=== PATIENT | male | born 1975 | race Caucasian/White ===

== ENCOUNTER 2016-05-29 16:51 | Inpatient (IN) ==
[2016-05-29] MEDS ORDERED: 0.9 % Sodium Chloride 1,000 ML IVC ONE (16:59)
[2016-05-29] MEDS ORDERED: Ondansetron 4 MG/2 ML VIAL IVP ONE (16:59)
--- NOTE | 2016-05-29 17:03 | Emergency Department Note ---
Disposition Clinical Impression: Acute pyelonephritis Fever Qualifiers: Fever type: unspecified Qualified Code(s): R50.9 - Fever, unspecified Disposition: Admitted As Inpatient Condition: Good Referrals: Jeovanny Portillo MD [Primary Care Provider] - Forms: ED Satisfaction Letter Time of Disposition: 19:29 Nausea/Vomiting/Diarrhea HPI - General Chief complaint: ED Nausea/Vomiting/Diarrhea Stated complaint: Nausea/Vomiting/fever Time Seen by Provider: 05/29/16 16:55 Source: patient Mode of arrival: ambulatory Limitations: no limitations Nursing Notes Reviewed: Yes Vital Signs Reviewed: Yes - History of Present Illness HPI Narrative: 41-year-old white male who developed right flank pain on Monday. On he developed vomiting and diarrhea. He has had multiple episodes of vomiting. His diarrhea has subsided. He has had fever and chills. He has pain in his right flank at his nephrostomy site. He apparently had a urine culture done which was positive and they were supposed to call in a prescription. That was done last week. Pt Subjective Complaint: vomiting, diarrhea Onset (ago): day(s) (4) Description of emesis: food contents (Multiple) Description of Diarrhea: water (Multiple, has now resolved.) Associated Abdominal Pain: Yes If pain, Location of pain: flank (Right) Radiation: other (None) Severity: severe Quality: sharp Consistency: constant Improves with: movement Worsens with: vomiting Context: other (Nephrostomy) Associated symptoms: Reports: myalgias, fever/chills - Related Data Home Medications Medication Instructions Recorded Confirmed Losartan/Hydrochlorothiazide 1 tab PO BID 05/15/16 05/15/16 [Losartan-Hctz 100-25 mg Tab] Tamsulosin [Flomax] 0.4 mg PO DAILY 05/15/16 05/15/16 Previous Rx's Medication Instructions Recorded Labetalol HCl 200 mg PO BID 30 Days 04/07/16 Promethazine [Phenergan] 12.5 mg PO Q8HR PRN #15 tablet 05/18/16 Allergies Allergy/AdvReac Type Severity Reaction Status Date / Time No Known Allergies Allergy Verified 05/15/16 14:36 All systems ED: reviewed and negative except as stated. Constitutional: Reports: fever, chills ENT ED: Reports: throat pain. Denies: ear pain Cardiovascular: Denies: chest pain Respiratory: Denies: cough, dyspnea Gastrointestinal: Reports: nausea, vomiting, diarrhea Musculoskeletal: Reports: back pain (Right flank) Past Medical History - Past Medical History Medical history: Reports: hypertension, kidney stones Surgical history: Reports: ureteral stent, other Psychiatric history: Reports: anxiety, panic disorder - Social History Smoking Status: Never smoker Smokeless Tobacco Status: No Alcohol use: Reports: none Drug use: Reports: none Physical Exam - General Limitations: no limitations General appearance: alert, in no apparent distress - Head Head exam: atraumatic, normocephalic - Eye Eye exam: Present: PERRL, EOMI. Absent: scleral icterus, conjunctival injection - ENT ENT exam: normal oropharynx, mucous membranes moist, TM's normal bilaterally - Neck Neck exam: Present: normal inspection, full ROM, trachea midline. Absent: lymphadenopathy - Respiratory Respiratory exam: Present: normal lung sounds bilaterally. Absent: respiratory distress, wheezes - Cardiovascular Cardiovascular exam: Present: regular rate, normal rhythm, normal heart sounds - Abdominal Exam Abdominal exam: Present: soft, tenderness (Right flank), normal bowel sounds. Absent: organomegaly, mass - Extremities Exam Extremities exam: Present: normal inspection, normal capillary refill - Neurological Exam Neurological exam: Present: alert, oriented X3, normal gait - Psychiatric Psychiatric exam: Present: normal affect, normal mood - Skin Skin exam: Present: warm, dry Course - Reevaluation(s) Reevaluation #1: Continues to have pain, although it is somewhat improved starting to get worse again. His nausea is improved. His temperature is actually gone up to 105 and he was given Motrin. We discussed admission. He is agreeable with being admitted here. I will talk with Dr. Traylor to see if he will accept admission. Time: 19:02 Reevaluation #2: Accepted by Dr. Traylor. Time: 19:30 Vital Signs Temperature 103.5 F H 05/29/16 16:53 Pulse Rate 111 05/29/16 16:53 Respiratory Rate 19 05/29/16 16:53 Blood Pressure 171/97 05/29/16 16:53 O2 Sat by Pulse Oximetry 96 05/29/16 16:53 Temperature 102.8 F H 05/29/16 19:07 Pulse Rate 103 05/29/16 19:07 Respiratory Rate 18 05/29/16 19:07 Blood Pressure 156/79 05/29/16 19:07 O2 Sat by Pulse Oximetry 95 05/29/16 19:07 Oxygen Delivery Oxygen Delivery Room Air Nausea/Vomiting/Diarrhea - MDM Narrative Medical decision making narrative: Differential includes but is not limited to viral gastroenteritis, pyelonephritis, ureterolithiasis, bowel obstruction, pancreatitis, sepsis. - Medical Records Medical records reviewed: Yes I reviewed the patient's medical records. His culture of his urine from the showed staph aureus which is sensitive to multiple antibiotics including vancomycin. - Lab Data Lab results reviewed: Yes I reviewed the patient's lab results. Result diagrams: 05/29/16 17:10 05/29/16 17:10 Lab Results 05/29/16 05/29/16 05/29/16 Range/Units 17:10 17:10 17:10 WBC 16.9 H (4.3-11.1) K/mcL RBC 3.80 L (4.19-5.50) M/mcL Hgb 11.6 L (12.9-16.9) g/dL Hct 35.1 L (37.5-50.1) % MCV 92.4 (83.0-100.0) fL MCH 30.5 (28.0-33.3) pg MCHC 33.0 (31.6-35.5) g/dL RDW 15.6 H (11.5-14.5) % Plt Count 423 H (140-400) K/mcL MPV 8.8 L (9.4-12.4) fL Immature Gran % 0.5 (0-4) % Seg Neutrophils % 85.7 % Lymphocytes % 5.9 % Monocytes % 7.7 % Eosinophils % 0.0 % Basophils % 0.2 % Neutrophils # 14.5 H (1.6-8.9) K/mcL Lymphocytes # 1.0 (0.6-4.6) K/mcL Monocytes # 1.3 (0.0-1.3) K/mcL Eosinophils # 0.0 (0.0-0.6) K/mcL Basophils # 0.0 (0.0-0.2) K/mcL VBG Lactic Acid 1.2 (0.5-2.2) mmol/L Sodium 137 (136-145) mEq/L Potassium 3.5 (3.5-4.5) mEq/L Chloride 96 L (98-109) mEq/L Carbon Dioxide 25 (19-29) mEq/L BUN 27 H (8-26) mg/dL Creatinine 1.67 H (0.72-1.25) mg/dL Est GFR ( Amer) 55 L (> 60) Est GFR (Non-Af Amer) 45 L (> 60) BUN/Creatinine Ratio 16 (6-26) Glucose 117 H (70-99) mg/dL Calculated Osmolality 290 (280-300) Calcium 10.0 (8.6-10.8) mg/dL Total Bilirubin 0.6 (0.2-1.2) mg/dL AST 37 H (5-34) Units/L ALT 73 H (0-55) Units/L Alkaline Phosphatase 153 H (38-126) Units/L Serum Total Protein 7.7 (6.0-8.3) g/dL Albumin 3.1 L (3.5-5.0) g/dL Globulin 4.6 H (2.4-3.5) g/dL Albumin/Globulin Ratio 0.7 L (1.1-2.2) Lipase 17 (8-78) Units/L Urine Color (Yellow) Urine Clarity (Clear) Urine pH (5.0-8.0) pH Units Ur Specific Rougon (1.010-1.025) Urine Protein (Neg-Trace) mg/dL Urine Glucose (UA) (Normal) mg/dL Urine Ketones (Negative) mg/dL Urine Blood (Negative) Urine Nitrite (Negative) Urine Bilirubin (Negative) Urine Urobilinogen (Normal) mg/dL Ur Leukocyte Esterase (Negative) Urine Microscopic RBC (0-3) per hpf Urine Microscopic WBC (0-3) per hpf Ur Squamous Epith Cells (None-Few) per lpf Urine Bacteria (None-Few) per hpf Hyaline Casts (None-Few) per lpf Urine Mucus (Few) Ur Culture Indicated? (NO) 05/29/16 Range/Units 17:25 WBC (4.3-11.1) K/mcL RBC (4.19-5.50) M/mcL Hgb (12.9-16.9) g/dL Hct (37.5-50.1) % MCV (83.0-100.0) fL MCH (28.0-33.3) pg MCHC (31.6-35.5) g/dL RDW (11.5-14.5) % Plt Count (140-400) K/mcL MPV (9.4-12.4) fL Immature Gran % (0-4) % Seg Neutrophils % % Lymphocytes % % Monocytes % % Eosinophils % % Basophils % % Neutrophils # (1.6-8.9) K/mcL Lymphocytes # (0.6-4.6) K/mcL Monocytes # (0.0-1.3) K/mcL Eosinophils # (0.0-0.6) K/mcL Basophils # (0.0-0.2) K/mcL VBG Lactic Acid (0.5-2.2) mmol/L Sodium (136-145) mEq/L Potassium (3.5-4.5) mEq/L Chloride (98-109) mEq/L Carbon Dioxide (19-29) mEq/L BUN (8-26) mg/dL Creatinine (0.72-1.25) mg/dL Est GFR ( Amer) (> 60) Est GFR (Non-Af Amer) (> 60) BUN/Creatinine Ratio (6-26) Glucose (70-99) mg/dL Calculated Osmolality (280-300) Calcium (8.6-10.8) mg/dL Total Bilirubin (0.2-1.2) mg/dL AST (5-34) Units/L ALT (0-55) Units/L Alkaline Phosphatase (38-126) Units/L Serum Total Protein (6.0-8.3) g/dL Albumin (3.5-5.0) g/dL Globulin (2.4-3.5) g/dL Albumin/Globulin Ratio (1.1-2.2) Lipase (8-78) Units/L Urine Color Yellow (Yellow) Urine Clarity Slightly Cloudy A (Clear) Urine pH 5.5 (5.0-8.0) pH Units Ur Specific Rougon 1.025 (1.010-1.025) Urine Protein >=300 H (Neg-Trace) mg/dL Urine Glucose (UA) Normal (Normal) mg/dL Urine Ketones Negative (Negative) mg/dL Urine Blood Large H (Negative) Urine Nitrite Positive A (Negative) Urine Bilirubin Negative (Negative) Urine Urobilinogen Normal (Normal) mg/dL Ur Leukocyte Esterase Trace H (Negative) Urine Microscopic RBC 5-15 H (0-3) per hpf Urine Microscopic WBC 5-15 H (0-3) per hpf Ur Squamous Epith Cells Few (None-Few) per lpf Urine Bacteria Moderate H (None-Few) per hpf Hyaline Casts Few (None-Few) per lpf Urine Mucus Few (Few) Ur Culture Indicated? YES A (NO) - Radiology Data Radiology results reviewed: Yes I reviewed the patient's radiology results.
[2016-05-29 17:19] LABS: Basophils % 0.2 %; Hematocrit 35.1 % (37.5-50.1); Hemoglobin 11.6 g/dL (12.9-16.9); Immature Granulocytes % 0.5 % (0-4); Lymphocytes % 5.9 %; Mean Corpuscular Hemoglobin 30.5 pg (28.0-33.3); Mean Corpuscular Volume 92.4 fL (83.0-100.0); Mean Platelet Volume 8.8 fL (9.4-12.4); Monocytes # 1.3 K/mcL (0.0-1.3); Monocytes % 7.7 %; Neutrophils # 14.5 K/mcL (1.6-8.9); Platelet Count 423 K/mcL (140-400); Red Cell Distribution Width 15.6 % (11.5-14.5); Segmented Neutrophils % 85.7 %
[2016-05-29] MEDS: *HR* Morphine 2 MG/ML SYRINGE IVP ONE ×2 (17:26→18:18)
[2016-05-29 17:33] LABS: Bilirubin,Urine Negative (Negative); Blood,Urine Large (Negative); Clarity,Urine Slightly Cloudy (Clear); Color,Urine Yellow (Yellow); Glucose,Urine (UA) Normal (Normal); Ketones,Urine Negative (Negative); Leukocyte Esterase,Urine Trace (Negative); Nitrite,Urine Positive (Negative); PH,Urine 5.5 pH Units (5.0-8.0); Protein,Urine >=300 mg/dL (Neg-Trace); Specific Gravity,Urine 1.025 (1.010-1.025); Urobilinogen,Urine Normal (Normal)
[2016-05-29 17:34] LABS: Albumin 3.1 g/dL (3.5-5.0); Albumin/Globulin Ratio 0.7 (1.1-2.2); Bilirubin,Total 0.6 mg/dL (0.2-1.2); Globulin 4.6 g/dL (2.4-3.5); Potassium 3.5 mEq/L (3.5-4.5); Total Protein 7.7 g/dL (6.0-8.3)
[2016-05-29 17:47] LABS: Bacteria,Urine Moderate per hpf (None-Few); Hyaline Casts,Urine Few per lpf (None-Few); Mucus,Urine Few (Few); Squamous Epithelial Cell,Urine Few per lpf (None-Few)
[2016-05-29] MEDS ORDERED: *HR* Morphine 2 MG/ML SYRINGE IVP ONE (18:05)
[2016-05-29] MEDS ORDERED: Ibuprofen 600 MG TABLET PO ONE (18:24)
[2016-05-29] MEDS ORDERED: 0.9 % Sodium Chloride 1,000 ML IVC SCH ×2 (18:45→20:44)
[2016-05-29] MEDS ORDERED: Vancomycin 1,250 MG in D5% in Water 250 ML IVPB ONE (19:01)
[2016-05-29] MEDS ORDERED: *HR* HYDROmorphone (PF) 1 MG/ML SYRINGE IVP ONE (19:17)
[2016-05-29] MEDS ORDERED: Vancomycin 1,000 MG in D5% in Water 250 ML IVPB ONE (19:17)
[2016-05-29] MEDS ORDERED: Vancomycin (wt based) 1,000 MG VIAL IV SCH (20:44)
[2016-05-29] MEDS ORDERED: Naloxone 0.4 MG/ML INJ IVP PRN (20:44)
[2016-05-29] MEDS ORDERED: *HR* HYDROmorphone (PF) 1 MG/ML SYRINGE IVP PRN (20:44)
[2016-05-29] MEDS: Ondansetron 4 MG/2 ML VIAL IVP PRN (21:51)
[2016-05-29] MEDS: *HR* HYDROmorphone (PF) 1 MG/ML SYRINGE IVP PRN (21:55)
[2016-05-29] MEDS: 0.9 % Sodium Chloride 1,000 ML IVC SCH (23:58)
[2016-05-30] MEDS: Acetaminophen 325 MG TABLET PO PRN ×2 (01:27→19:44)
[2016-05-30] MEDS: *HR* HYDROmorphone (PF) 1 MG/ML SYRINGE IVP PRN ×12 (02:15→23:43)
[2016-05-30] MEDS: Ondansetron 4 MG/2 ML VIAL IVP PRN ×6 (02:20→23:43)
[2016-05-30] MEDS ORDERED: Azithromycin 500 MG in D5% in Water 250 ML IVPB ONE (02:25)
[2016-05-30] MEDS: CefTRIAXone 1,000 MG in D5% in Water (Mini-Bag+) 100 ML IVPB SCH (03:51)
[2016-05-30] MEDS: *HR* Enoxaparin 40 MG/0.4 ML SYRINGE SQ SCH (06:22)
[2016-05-30] MEDS: 0.9 % Sodium Chloride 1,000 ML IVC SCH (07:13)
[2016-05-30] MEDS: Vancomycin 1,250 MG in D5% in Water 250 ML IVPB SCH ×2 (10:26→19:45)
--- NOTE | 2016-05-30 11:24 | Internal Med History&Physical ---
Date of Encounter: 05/30/16 Time of Encounter: 10:45 Assessment and Plan (1) Acute pyelonephritis Current visit: Yes Status: Acute He has been started on vancomycin. Rocephin and Levaquin were added during the night after temperature spike to 105. Lactobacillus will also be given. Urine culture is pending (2) HTN (hypertension) Current visit: No Status: Chronic Continue labetalol and monitor blood pressures. Qualifiers: Qualified Code(s): I10 - Essential (primary) hypertension (3) Dehydration Current visit: No Status: Resolved We will give IV fluids and monitor renal indices. Internal Medicine - H&P: HPI Chief complaint: Vomiting and fever Admitted From: Home Plans for Post Hospital Care: Home History of present illness: Mr. Haines is a 41 year old male who came to emergency room stating he had 4 days of vomiting with fever. He was found to have leukocytosis with left shift on the differential. He was diagnosed with pyelonephritis and was admitted to [facility] floor for ongoing care needs. He had a right nephrostomy tube placed 2 weeks ago during an [facility] stay. He had a previous distal right ureter stent placed 03/22/2016 because of stricture (?) . There was a questionable stone or stricture at the right UVJ. Stent was removed after 3-4 weeks. He has continued to have right sided symptoms. Urine culture done 05/24/2016 showed MSSA. He was started on vancomycin in emergency room on admission. Denies other kidney or bladder disorders. He is unaware of any prostate disorders. Past Med Surg Social Fam HX - Past Medical History Medical history: hypertension, kidney stones Psychiatric history: anxiety, panic disorder - Past Surgical History Surgical History: ureteral stent, other - Social History Smoking Status: Never smoker Smokeless Tobacco Status: No Alcohol use: none Drug use: none - Family History Father Living Status: Still Living Hx Family Cardiac Disorders: Yes (Hx heart disease) Hx Family Cancer: Yes Hx Family Endocrine Disorder: Yes (Diabetes) Mother Adopted: No Living Status: Still Living Hx Family Cardiac Disorders: Yes (Heart attacks) Hx Family Cancer: Yes (moms brothers had pancreatic cancer) Hx Family Endocrine Disorder: Yes Internal Medicine - H&P: Meds Labetalol HCl 200 mg PO BID 30 Days 04/07/16 [Rx] Losartan/Hydrochlorothiazide [Losartan-Hctz 100-25 mg Tab] 1 tab PO BID [History] Tamsulosin [Flomax] 0.4 mg PO DAILY 05/15/16 [History] Promethazine [Phenergan] 12.5 mg PO Q8HR PRN #15 tablet 05/18/16 [Rx] Allergies No Known Allergies Allergy (Verified 05/15/16 14:36) All Systems PM: A 10-system review of systems was performed and is negative for pertinent findings except as documented above in the HPI. Review of systems: Review of systems from his January 2016 [facility] hospitalization were reviewed and revised as below. General: He states his weight has been stable the past few months Cardiovascular: Has hypertension but no known IN heart failure angina DVT or pulmonary embolus. He claims he had exercise stress test at [facility] in August 2015 which did not show ischemia. He has not restarted Hyzaar since hospitalization January 2016 at [facility] for hypotension. He has resumed labetalol. Respiratory: He is a lifelong nonsmoker and has no known chronic lung disease GI: Denies disorders of his liver gallbladder or exocrine pancreas : As per history of present illness Neurologic: He denies large distribution strokes or seizures Endocrine: He denies diabetes thyroid disease or hyperlipidemia Hematology/oncology: He was found to have anemia in the emergency room. He denies internal malignancies Psychiatric: He has anxiety and depression denies other mental health issues Musk skeletal: He has DJD but denies gout or other bone joint or muscle disorders. - Constitutional Vitals: Temp Pulse Resp BP Pulse Ox 98.9 F 95 20 150/95 95 05/30/16 11:05 05/30/16 11:05 05/30/16 11:05 05/30/16 11:05 05/30/16 11:05 Exam: Gen.: He is a well-developed well-nourished male who appears in mild to moderate pain at times during examination. HEENT: Head is atraumatic and normocephalic. Eyes: EOMI. There is no scleral icterus. Mouth: Mucosa is moist. Neck: Supple and nontender. There is no thyromegaly or adenopathy noted. Heart: Regular without murmurs gallops or ectopics. Lungs: No wheezes or crackles heard. Abdomen: Bowel sounds are diminished. There is no tenderness or masses noted Back: He has a right nephrostomy tube in place. There is mild erythema at the insertion site and suture. Extremities: There is no cyanosis edema or clubbing noted. Dorsalis pedis and posttibial pulses are 1-2 over 2 bilaterally. Neurologic: Mental status: He is talkative and a good historian. Cranial nerves : Smile is symmetric. Forehead wrinkles bilaterally. Tongue protrudes midline. EOMI. Motor: Grossly intact without further formal testing done. Skin: Warm and dry Internal Med - H&P Results - Labs CBC & Chem 7: 05/29/16 17:10 05/29/16 17:10
[2016-05-30] MEDS: 0.45 % Sodium Chloride w/KCl 20 MEQ/1,000 ML MLS IVC SCH (12:49)
[2016-05-30] MEDS: Levofloxacin 500 MG/100 ML 500 MG/100 ML BAG IVPB SCH (12:50)
[2016-05-31] MEDS: *HR* HYDROmorphone (PF) 1 MG/ML SYRINGE IVP PRN ×11 (01:46→22:31)
[2016-05-31] MEDS: Acetaminophen 325 MG TABLET PO PRN (01:46)
[2016-05-31] MEDS: 0.45 % Sodium Chloride w/KCl 20 MEQ/1,000 ML MLS IVC SCH ×2 (01:52→15:23)
[2016-05-31] MEDS: CefTRIAXone 1,000 MG in D5% in Water (Mini-Bag+) 100 ML IVPB SCH (01:54)
[2016-05-31] MEDS: Ondansetron 4 MG/2 ML VIAL IVP PRN ×3 (03:46→20:31)
[2016-05-31 05:31] LABS: Basophils % 0.5 %; Eosinophils # 0.1 K/mcL (0.0-0.6); Eosinophils % 1.2 %; Hematocrit 30.2 % (37.5-50.1); Hemoglobin 9.9 g/dL (12.9-16.9); Immature Granulocytes % 0.4 % (0-4); Lymphocytes # 2.1 K/mcL (0.6-4.6); Mean Corpuscular HGB Conc 32.8 g/dL (31.6-35.5); Mean Corpuscular Hemoglobin 30.7 pg (28.0-33.3); Mean Corpuscular Volume 93.8 fL (83.0-100.0); Mean Platelet Volume 8.8 fL (9.4-12.4); Monocytes # 0.7 K/mcL (0.0-1.3); Monocytes % 9.3 %; Neutrophils # 4.7 K/mcL (1.6-8.9); Platelet Count 430 K/mcL (140-400); Red Blood Count 3.22 M/mcL (4.19-5.50); Red Cell Distribution Width 15.7 % (11.5-14.5); Segmented Neutrophils % 61.6 %
[2016-05-31] MEDS: *HR* Enoxaparin 40 MG/0.4 ML SYRINGE SQ SCH (05:44)
[2016-05-31 05:48] LABS: BUN/Creatinine Ratio 13 (6-26); Blood Urea Nitrogen 11 mg/dL (8-26); Calcium 9.1 mg/dL (8.6-10.8); Carbon Dioxide 29 mEq/L (19-29); Chloride 99 mEq/L (98-109); Glucose 99 mg/dL (70-99); Magnesium 1.9 mg/dL (1.6-2.6); Osmolality,Calculated 285 (280-300); Potassium 3.6 mEq/L (3.5-4.5); Sodium 138 mEq/L (136-145); eGFR For African Americans > 60 (> 60); eGFR For Non-African Americans > 60 (> 60)
[2016-05-31] MEDS: Vancomycin 1,250 MG in D5% in Water 250 ML IVPB SCH (09:54)
[2016-05-31] MEDS: Vancomycin 1,500 MG in D5% in Water 250 ML IVPB SCH ×2 (10:26→20:31)
--- NOTE | 2016-05-31 10:28 | Internal Med Progress Note ---
Date of Encounter: 05/31/16 Time of Encounter: 10:20 - Assessment and plan (1) Acute pyelonephritis Current Visit: Yes Status: Acute Assessment and plan: May 31. Continue Rocephin, Levaquin, and vancomycin. Urine culture report is pending. (2) HTN (hypertension) Current Visit: No Status: Chronic Assessment and plan: May 31. Continue to hold Hyzaar. Will start Toprol-XL.. Qualifiers: Hypertension type: essential hypertension Qualified Code(s): I10 - Essential (primary) hypertension (3) Dehydration Current Visit: No Status: Resolved Assessment and plan: May 31. Azotemia has resolved. Oral intake is still suboptimal so we will continue with IV fluids. - Subjective Interval history: May 31. He states he is having pain at the nephrostomy tube area but has no other new complaints. - Constitutional Vitals: Temp Pulse Resp BP Pulse Ox 98.8 F 88 17 159/94 97 05/31/16 10:00 05/31/16 10:00 05/31/16 10:00 05/31/16 10:00 05/31/16 10:00 Exam: He appears to be in minimal distress at present time. His affect is cheerful at times. I reviewed his medications and lab results and note normal WBC and resolution of left shift. He has had resolution of his azotemia. Internal Medicine: Result - Labs CBC & Chem 7: 05/31/16 05:05 05/31/16 05:05 Labs: Short CBC 05/31/16 Range/Units 05:05 WBC 7.7 D (4.3-11.1) K/mcL Hgb 9.9 L D (12.9-16.9) g/dL Hct 30.2 L (37.5-50.1) % Plt Count 430 H (140-400) K/mcL Neutrophils # 4.7 (1.6-8.9) K/mcL BMP 05/31/16 05:05 Sodium 138 Potassium 3.6 Chloride 99 Carbon Dioxide 29 BUN 11 D Creatinine 0.84 Glucose 99 Calcium 9.1 Consult Discharge Plan - Plan Referrals: Jeovanny Portillo MD [Primary Care Provider] - 1 week
[2016-05-31] MEDS: Levofloxacin 500 MG/100 ML 500 MG/100 ML BAG IVPB SCH (12:00)
[2016-05-31] MEDS: Metoprolol XL (24 HR) Succ 25 MG TAB.ER.24H PO SCH (12:01)
[2016-06-01] MEDS: *HR* HYDROmorphone (PF) 1 MG/ML SYRINGE IVP PRN ×5 (00:29→08:36)
[2016-06-01] MEDS: CefTRIAXone 1,000 MG in D5% in Water (Mini-Bag+) 100 ML IVPB SCH (02:28)
[2016-06-01] MEDS: *HR* Enoxaparin 40 MG/0.4 ML SYRINGE SQ SCH (04:36)
[2016-06-01] MEDS: 0.45 % Sodium Chloride w/KCl 20 MEQ/1,000 ML MLS IVC SCH (04:43)
[2016-06-01 05:20] LABS: Basophils % 0.5 %; Eosinophils # 0.1 K/mcL (0.0-0.6); Eosinophils % 1.8 %; Hematocrit 29.7 % (37.5-50.1); Hemoglobin 9.9 g/dL (12.9-16.9); Immature Granulocytes % 0.6 % (0-4); Lymphocytes # 1.9 K/mcL (0.6-4.6); Lymphocytes % 27.9 %; Mean Corpuscular HGB Conc 33.3 g/dL (31.6-35.5); Mean Corpuscular Hemoglobin 30.7 pg (28.0-33.3); Mean Platelet Volume 8.9 fL (9.4-12.4); Monocytes # 0.5 K/mcL (0.0-1.3); Monocytes % 6.9 %; Neutrophils # 4.1 K/mcL (1.6-8.9); Platelet Count 509 K/mcL (140-400); Red Blood Count 3.23 M/mcL (4.19-5.50); Red Cell Distribution Width 15.2 % (11.5-14.5); Segmented Neutrophils % 62.3 %
[2016-06-01 05:46] LABS: Alanine Aminotransferase 35 Units/L (0-55); Albumin 2.5 g/dL (3.5-5.0); Albumin/Globulin Ratio 0.7 (1.1-2.2); Alkaline Phosphatase 131 Units/L (38-126); Aspartate Amino Transferase 20 Units/L (5-34); BUN/Creatinine Ratio 13 (6-26); Bilirubin,Total 0.3 mg/dL (0.2-1.2); Blood Urea Nitrogen 10 mg/dL (8-26); Calcium 9.2 mg/dL (8.6-10.8); Carbon Dioxide 26 mEq/L (19-29); Chloride 100 mEq/L (98-109); Globulin 3.6 g/dL (2.4-3.5); Glucose 98 mg/dL (70-99); Osmolality,Calculated 287 (280-300); Potassium 3.6 mEq/L (3.5-4.5); Sodium 139 mEq/L (136-145); Total Protein 6.1 g/dL (6.0-8.3); eGFR For African Americans > 60 (> 60); eGFR For Non-African Americans > 60 (> 60)
[2016-06-01 08:35] VITALS: BP 165/100
[2016-06-01] MEDS: Ondansetron 4 MG/2 ML VIAL IVP PRN (08:35)
[2016-06-01] MEDS: Metoprolol XL (24 HR) Succ 25 MG TAB.ER.24H PO SCH (08:55)
--- NOTE | 2016-06-01 09:41 | Discharge Summary ---
Date of Encounter: 06/01/16 Time of Encounter: 09:30 - Discharge Diagnosis (1) Acute pyelonephritis Priority: Primary Status: Acute (2) HTN (hypertension) Priority: Secondary Status: Chronic Qualifiers: Hypertension type: essential hypertension Qualified Code(s): I10 - Essential (primary) hypertension (3) Dehydration Priority: Secondary Status: Resolved - Discharge Medications Prescriptions: Cefuroxime PO [Ceftin] 500 mg PO Q12HR #14 tablet Lactobacillus [Culturelle] 1 each PO BID #14 cap.sprink Levofloxacin [Levaquin] 500 mg PO DAILY #7 tablet Metoprolol XL (24 HR) Succ [Toprol XL] 50 mg PO DAILY #7 tab.er.24h Home Medications: Tamsulosin [Flomax] 0.4 mg PO DAILY 05/15/16 [History] Promethazine [Phenergan] 12.5 mg PO Q8HR PRN #15 tablet 05/18/16 [Rx] Cefuroxime PO [Ceftin] 500 mg PO Q12HR #14 tablet 06/01/16 [Rx] Lactobacillus [Culturelle] 1 each PO BID #14 cap.sprink 06/01/16 [Rx] Levofloxacin [Levaquin] 500 mg PO DAILY #7 tablet 06/01/16 [Rx] Metoprolol XL (24 HR) Succ [Toprol XL] 50 mg PO DAILY #7 tab.er.24h 06/01/16 [Rx ] Allergies/Adverse Reactions: Allergies No Known Allergies Allergy (Verified 05/15/16 14:36) Date of admission: 05/30/16 11:38 Primary care physician: Jeovanny Portillo MD - Patient Status Disposition: Home, Self-Care Condition: Good Overall status at discharge: patient is progressing back to baseline - Discharge Instructions Follow Up With: Jeovanny Portillo MD [Primary Care Provider] - 1 week - Diet and Activity Activity: resume usual activities as tolerated Diet: advance to your usual diet Hospital course: Mr. Haines is a 41 year old male who came to emergency room stating he had 4 days of vomiting with fever. He was found to have leukocytosis with left shift on the differential. He was diagnosed with pyelonephritis and was admitted to [facility] floor for ongoing care needs. Initial orders were written by the emergency room physician. I saw him on May 30 and performed a history and physical. He was started on IV vancomycin by the emergency room physician. I added Rocephin and Levaquin empirically. Urine culture was ordered but no results were available at time of discharge. He remained afebrile after the first hospital day. Leukocytosis resolved and left shift on the WBC differential normalized. On June 01 he felt significantly improved and felt was stable for discharge home to continue oral antibiotics and probiotics for an additional 7 days. He will follow with Dr. Jeovanny Portillo later today and follow with urologist as directed. He was given IV fluids and labetalol and Hyzaar were held. His azotemia resolved with BUN and creatinine being 10 and 0.75 respectively on the day of discharge. He was started on Toprol-XL to replace labetalol. He will continue this upon discharge. Hemoglobin decreased to 9.9 with IV hydration. No anemia testing was done during his hospital stay. Elevated transaminases returned to normal range on repeat CMP 06/01/2016. - Time Spent with Patient Total time spent providing and/or coordinating discharge services: - Constitutional Vitals: Temp Pulse Resp BP Pulse Ox 98.5 F 84 16 165/100 96 06/01/16 07:08 06/01/16 08:34 06/01/16 07:08 06/01/16 08:34 06/01/16 08:34
== END 2016-06-01 11:10 | disposition home or self-care (01) | DRG 463 ==
LOC: INPPIK 16:51 → EMEROOPIK 16:51 → INPPIK 20:35
PROVIDERS: ADMIT Internal Medicine; ATTEND Internal Medicine

== ENCOUNTER 2017-10-30 18:55 | Inpatient (IN) ==
[2017-10-30] MEDS ORDERED: 0.9 % Sodium Chloride 1,000 ML IVC ONE ×2 (19:30→20:53)
[2017-10-30] MEDS ORDERED: Ondansetron 4 MG/2 ML VIAL IVP ONE (19:30)
[2017-10-30] MEDS ORDERED: *HR* Nalbuphine 10 MG/ML AMPUL IV STA (19:36)
--- NOTE | 2017-10-30 19:38 | Emergency Department Note ---
Disposition Clinical Impression: Acute renal failure Qualifiers: Acute renal failure type: unspecified Qualified Code(s): N17.9 - Acute kidney failure, unspecified Abdominal pain Qualifiers: Abdominal location: generalized Qualified Code(s): R10.84 - Generalized abdominal pain Nausea and vomiting Qualifiers: Vomiting type: unspecified Vomiting Intractability: unspecified Qualified Code( s): R11.2 - Nausea with vomiting, unspecified Disposition: Admitted As Inpatient Referrals: Fernando Del Valle, CERTIFIED RECREATIONAL THERAPIST [Primary Care Provider] - Forms: ED Satisfaction Letter, Work/School Release Time of Disposition: 21:46 (Dr Pacheco) Abdominal Pain HPI - General Chief Complaint: ED General Medical Stated Complaint: "my kidneys, failure" Time Seen by Provider: 10/30/17 19:06 Source: family Mode of arrival: ambulatory Limitations: no limitations Nursing Notes Reviewed: Yes Vital Signs Reviewed: Yes - History of Present Illness Pt Subjective Complaint: abdominal pain Onset (ago): day(s) (4) Consistency: constant, Worsening Location: RUQ, RLQ Pain Scale: 7 Migration to: no migration Improves with: nothing Worsens with: vomiting, movement Context: other (Patient has a history of chronic abdominal pain and flank pain secondary to complications of urologic surgery. The patient has this episode every couple of weeks and was recently seen at [facility] where he had negative diagnostic and laboratory evaluation. The patient had persistent pain since Monday and unable tolerate by mouth. The patient states this is similar to previous history of renal pain leading to subsequent renal failure and dehydration.) Associated symptoms: Reports: nausea, vomiting, chills. Denies: diarrhea, fever , constipation, dysuria, hematemesis, hematochezia, melena, hematuria, anorexia , syncope Treatments prior to arrival: none - Related Data Home Medications Medication Instructions Recorded Confirmed Tamsulosin [Flomax] 0.4 mg PO DAILY 08/26/16 10/30/17 Oxybutynin [Ditropan] 0.5 mg PO QID 10/08/16 10/30/17 Labetalol HCl 200 mg PO BID 09/14/17 10/30/17 Allergies Allergy/AdvReac Type Severity Reaction Status Date / Time ketorolac [From Toradol] Allergy Rash Verified 09/14/17 16:22 All systems ED: reviewed and negative except as stated. Review of Systems: As Per HPI Abdominal Pain PMH - Past Medical History Medical history: Reports: arthritis, hypertension, kidney stones, renal disease , other Male Surgical History: Reports: orthopedic, other, other Psychiatric history: Reports: anxiety, panic disorder - Social History Smoking status: Never smoker Alcohol use: Reports: none Drug use: Reports: none Physical Exam - General Limitations: no limitations General appearance: alert, in distress - Head Head exam: atraumatic, normocephalic, normal inspection - Eye Eye exam: Present: normal appearance, PERRL, EOMI - ENT ENT exam: normal exam, normal oropharynx, mucous membranes moist - Neck Neck exam: Present: normal inspection, full ROM, trachea midline - Chest Chest inspection: Present: normal inspection, symmetric chest wall rise - Respiratory Respiratory exam: Present: normal lung sounds bilaterally - Cardiovascular Cardiovascular exam: Present: regular rate, normal rhythm, normal heart sounds - Abdominal Exam Abdominal exam: Present: soft, tenderness. Absent: distention, guarding, rebound, rigidity Abdominal tenderness: Present: RUQ, RLQ, suprapubic - Extremities Exam Extremities exam: Present: normal inspection, full ROM. Absent: tenderness, pedal edema - Back Exam Back exam: Present: normal inspection, full ROM, CVA tenderness (R) - Neurological Exam Neurological exam: Present: alert, oriented X3, CN II-XII intact - Psychiatric Psychiatric exam: Present: normal affect, normal mood - Skin Skin exam: Present: warm, dry, intact, normal color Course - Reevaluation(s) Reevaluation #1: Stable hemodynamically but still persistent nausea and abdominal pain. Laboratory evaluation shows elevated creatinine levels. Patient still unable to produce a urine sample. Time: 21:00 Vital Signs Temperature 98.6 F 10/30/17 18:59 Pulse Rate 71 10/30/17 18:59 Respiratory Rate 16 10/30/17 18:59 Blood Pressure 74/48 10/30/17 18:59 O2 Sat by Pulse Oximetry 98 10/30/17 18:59 Temperature 98.6 F 10/30/17 18:59 Pulse Rate 73 10/30/17 21:21 Respiratory Rate 16 10/30/17 21:21 Blood Pressure 101/71 10/30/17 21:21 O2 Sat by Pulse Oximetry 95 10/30/17 21:21 Oxygen Delivery Oxygen Delivery Room Air Abdominal Pain - MDM Narrative Medical decision making narrative: Patient with persistent nausea with abdominal pain of undetermined etiology. Patient's laboratory and diagnostic results from 11-13 ED visit was acquired and indicates that he has worsening renal function. The patient will be admitted to the hospital for hydration and monitoring of his kidney function. Discussed the case with the admitting hospitalist and will accept. - Differential Diagnosis Differential Diagnosis: Likely: abdominal pain non-specific, calculus of kidney - Medical Records Medical records reviewed: Yes I reviewed the patient's medical records. - Lab Data Lab results reviewed: Yes I reviewed the patient's lab results. Result diagrams: 10/30/17 20:00 10/30/17 20:00 Lab Results 10/30/17 10/30/17 Range/Units 20:00 20:00 WBC 11.6 H (4.3-11.1) K/mcL RBC 4.36 (4.19-5.50) M/mcL Hgb 14.2 (12.9-16.9) g/dL Hct 42.2 (37.5-50.1) % MCV 96.8 (83.0-100.0) fL MCH 32.6 (28.0-33.3) pg MCHC 33.6 (31.6-35.5) g/dL RDW 13.3 (11.5-14.5) % Plt Count 389 (140-400) K/mcL MPV 9.2 L (9.4-12.4) fL Immature Gran % 0.5 (0-4) % Seg Neutrophils % 88.4 % Lymphocytes % 6.4 % Monocytes % 4.4 % Eosinophils % 0.0 % Basophils % 0.3 % Neutrophils # 10.3 H (1.6-8.9) K/mcL Lymphocytes # 0.7 (0.6-4.6) K/mcL Monocytes # 0.5 (0.0-1.3) K/mcL Eosinophils # 0.0 (0.0-0.6) K/mcL Basophils # 0.0 (0.0-0.2) K/mcL Sodium 139 (136-145) mEq/L Potassium 3.6 (3.5-5.1) mEq/L Chloride 100 (98-107) mEq/L Carbon Dioxide 25 (23-29) mEq/L BUN 25 H (6-20) mg/dL Creatinine 1.86 H (0.70-1.30) mg/dL Est GFR ( Amer) 48 L (> 60) Est GFR (Non-Af Amer) 40 L (> 60) BUN/Creatinine Ratio 13 (6-26) Glucose 146 H (70-105) mg/dL Calculated Osmolality 295 (280-300) Calcium 10.2 (8.6-10.3) mg/dL Total Bilirubin 0.9 (0.3-1.0) mg/dL Direct Bilirubin 0.1 (0.0-0.2) mg/dL Indirect Bilirubin 0.8 (0.0-1.2) mg/dL AST 15 (13-39) Units/L ALT 15 (7-52) Units/L Alkaline Phosphatase 52 (34-104) Units/L Serum Total Protein 7.8 (6.4-8.9) g/dL Albumin 4.9 (3.5-5.7) g/dL Globulin 2.9 (2.4-3.5) g/dL Albumin/Globulin Ratio 1.7 (1.1-2.2) Lipase 40 (11-82) Units/L
[2017-10-30 20:11] LABS: Basophils % 0.3 %; Hematocrit 42.2 % (37.5-50.1); Hemoglobin 14.2 g/dL (12.9-16.9); Immature Granulocytes % 0.5 % (0-4); Lymphocytes # 0.7 K/mcL (0.6-4.6); Lymphocytes % 6.4 %; Mean Corpuscular HGB Conc 33.6 g/dL (31.6-35.5); Mean Corpuscular Hemoglobin 32.6 pg (28.0-33.3); Mean Corpuscular Volume 96.8 fL (83.0-100.0); Mean Platelet Volume 9.2 fL (9.4-12.4); Monocytes # 0.5 K/mcL (0.0-1.3); Monocytes % 4.4 %; Neutrophils # 10.3 K/mcL (1.6-8.9); Platelet Count 389 K/mcL (140-400); Red Blood Count 4.36 M/mcL (4.19-5.50); Red Cell Distribution Width 13.3 % (11.5-14.5); Segmented Neutrophils % 88.4 %
[2017-10-30 20:27] LABS: Albumin 4.9 g/dL (3.5-5.7); Albumin/Globulin Ratio 1.7 (1.1-2.2); Bilirubin,Direct 0.1 mg/dL (0.0-0.2); Bilirubin,Indirect 0.8 mg/dL (0.0-1.2); Bilirubin,Total 0.9 mg/dL (0.3-1.0); Calcium 10.2 mg/dL (8.6-10.3); Globulin 2.9 g/dL (2.4-3.5); Potassium 3.6 mEq/L (3.5-5.1); Total Protein 7.8 g/dL (6.4-8.9)
[2017-10-30] MEDS ORDERED: *HR* Nalbuphine 10 MG/ML AMPUL IVP STA (21:00)
[2017-10-30] MEDS: Haloperidol Lactate 5 MG/ML VIAL IVP ONE (21:11)
[2017-10-30] MEDS ORDERED: Ondansetron 4 MG/2 ML VIAL IVP PRN ×2 (21:47→22:15)
[2017-10-30] MEDS ORDERED: *HR* HYDROcodone/Acet 5/325 mg TABLET PO PRN ×2 (21:47→22:15)
[2017-10-30] MEDS ORDERED: Naloxone 0.4 MG/ML INJ IVP PRN ×2 (21:47→22:15)
[2017-10-30] MEDS ORDERED: *HR* Nalbuphine 20 MG/ML AMPUL IVP PRN (21:49)
[2017-10-30] MEDS ORDERED: Haloperidol Lactate 5 MG/ML VIAL IVP PRN ×2 (21:50→22:15)
[2017-10-30] MEDS ORDERED: 0.9 % Sodium Chloride 1,000 ML IVC SCH (22:00)
[2017-10-30] MEDS: 0.9 % Sodium Chloride 1,000 ML IVC SCH (23:03)
[2017-10-31 02:51] LABS: Bilirubin,Urine Small (Negative); Blood,Urine Trace-intact (Negative); Clarity,Urine Cloudy (Clear); Color,Urine Dark Yellow (Yellow); Glucose,Urine (UA) 100 mg/dL (Normal); Ketones,Urine Negative (Negative); Leukocyte Esterase,Urine Negative (Negative); Nitrite,Urine Negative (Negative); PH,Urine 6.5 pH Units (5.0-8.0); Protein,Urine >=300 mg/dL (Neg-Trace); Specific Gravity,Urine >= 1.030 (1.010-1.025); Urobilinogen,Urine Normal (Normal)
[2017-10-31 04:23] LABS: Basophils % 0.3 %; Hematocrit 35.2 % (37.5-50.1); Hemoglobin 11.6 g/dL (12.9-16.9); Immature Granulocytes % 0.2 % (0-4); Lymphocytes # 1.5 K/mcL (0.6-4.6); Lymphocytes % 16.7 %; Mean Corpuscular Hemoglobin 32.1 pg (28.0-33.3); Mean Corpuscular Volume 97.5 fL (83.0-100.0); Mean Platelet Volume 9.1 fL (9.4-12.4); Monocytes # 0.8 K/mcL (0.0-1.3); Monocytes % 8.6 %; Neutrophils # 6.8 K/mcL (1.6-8.9); Platelet Count 313 K/mcL (140-400); Red Blood Count 3.61 M/mcL (4.19-5.50); Red Cell Distribution Width 13.4 % (11.5-14.5); Segmented Neutrophils % 74.2 %
[2017-10-31 04:44] LABS: Calcium 8.9 mg/dL (8.6-10.3); Magnesium 1.8 mg/dL (1.6-2.6); Potassium 3.6 mEq/L (3.5-5.1)
[2017-10-31] MEDS: 0.9 % Sodium Chloride 1,000 ML IVC SCH (06:03)
[2017-10-31 09:18] LABS: Granular Casts,Urine Moderate per lpf (None Seen)
[2017-10-31 09:19] LABS: Hyaline Casts,Urine Few per lpf (None-Few)
[2017-10-31 09:21] LABS: White Blood Cell Casts,Urine Moderate per lpf (None Seen)
[2017-10-31 09:22] LABS: Amorphous Sediment,Urine Few (Few); Bacteria,Urine Moderate per hpf (None-Few); Mucus,Urine Few (Few); RBC,Urine 0-3 per hpf (0-3); Squamous Epithelial Cell,Urine Few per lpf (None-Few)
[2017-10-31] MEDS: *HR* Nalbuphine 10 MG/ML AMPUL IVP PRN ×3 (09:22→23:10)
--- NOTE | 2017-10-31 11:40 | Internal Med History&Physical ---
Date of Encounter: 10/31/17 Time of Encounter: 11:00 Assessment and Plan (1) Acute renal failure (ARF) Current visit: No Status: Resolved Suspect multifactorial etiology including dehydration from vomiting and diuretic use. He will be given IV fluids and diuretics will be held. Renal indices will be monitored. Qualifiers: Acute renal failure type: unspecified Qualified Code(s): N17.9 - Acute kidney failure, unspecified (2) HTN (hypertension) Current visit: No Status: Chronic Borderline hypotension at present. Will hold blood pressure medications and monitor. Qualifiers: Hypertension type: essential hypertension Qualified Code(s): I10 - Essential (primary) hypertension (3) Anemia Current visit: No Status: Chronic We will order anemia testing. Qualifiers: Anemia type: other cause Other causes of anemia: chronic disease, other Qualified Code(s): D63.8 - Anemia in other chronic diseases classified elsewhere Internal Medicine - H&P: HPI Chief complaint: Dysuria and dehydration Admitted From: Emergency Dept Plans for Post Hospital Care: Home History of present illness: Mr. Haines is a 42 year old male who came to emergency room stating he had persistent vomiting onset October 28. He reports going to emergency room at [place] and receiving treatment and being released. No additional medications were given at discharge to treat nausea. He had continued episodes of vomiting with worsening dysuria and significant decreased urinary output. He came to [facility] emergency room for evaluation. He was found to have acute renal failure and leukocytosis with left shift. He was admitted to [facility] floor for ongoing care needs. 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 A distal right ureter stent was placed time of surgery. Because of symptomatic reflux a right nephrostomy tube was placed and remained until a reimplantation of right ureter surgery January 2017. There has been no significant change in reflux symptoms. He denies other kidney or bladder disorders. Past Med Surg Social Fam HX - Past Medical History Medical history: arthritis, hypertension, kidney stones, renal disease, other Additional medical history: kidney failure Psychiatric history: anxiety, panic disorder - Past Surgical History Surgical History: ureteral stent, other (Prior nephrostomy tubes) Additional surgical history: ureter bypass, Kidney stones removed, nephrostomy right kidney x1 year, - Social History Smoking Status: Never smoker Smokeless Tobacco Status: No Alcohol use: none Drug use: none - Family History Sister Family Member Ethnicity: Non- Living Status: Still Living Father Family Member Ethnicity: Non- Living Status: Still Living Hx Family Cardiac Disorders: Yes (high blood pressure, heart disease) Hx Family Cancer: Yes Hx Family Endocrine Disorder: Yes (Diabetes) Mother Adopted: No Family Member Ethnicity: Non- Living Status: Still Living Hx Family Cardiac Disorders: Yes (high blood pressure, heart disease) Hx Family Cancer: Yes (moms brothers had pancreatic cancer) Hx Family Endocrine Disorder: Yes Internal Medicine - H&P: Meds Tamsulosin [Flomax] 0.4 mg PO DAILY 08/26/16 [History] Oxybutynin [Ditropan] 0.5 mg PO QID 10/08/16 [History] Labetalol HCl 200 mg PO BID 09/14/17 [History] 3 Allergy/AdvReac Type Severity Reaction Status Date / Time ketorolac [From Toradol] Allergy Rash Verified 09/14/17 16:22 All Systems PM: A 10-system review of systems was performed and is negative for pertinent findings except as documented above in the HPI. Review of systems: Review of systems from his May 2016 [facility] hospitalization were reviewed and revised as below. General: His weight has been stable at approximately 85 kg since May 2016 hospitalization. Cardiovascular: He has hypertension but no known OH heart failure angina DVT or pulmonary embolus. He reports using amlodipine, Trandate, and losartan/HCTZ for hypertension. He claims he had exercise stress test at [facility] in August 2015 which did not show ischemia. Respiratory: He is a lifelong nonsmoker and has no known chronic lung disease GI: Denies disorders of his liver gallbladder or exocrine pancreas. He states he has not vomited since arriving on [facility] floor. : As per history of present illness Neurologic: He denies large distribution strokes or seizures Endocrine: He denies diabetes thyroid disease or hyperlipidemia Hematology/oncology: He has had anemia on almost all CBCs since December 2014. Anemia testing has not been performed. He denies internal malignancies Psychiatric: He has anxiety and depression but denies other mental health issues Musk skeletal: He has DJD but denies gout or other bone joint or muscle disorders. - Constitutional Vitals: Temp Pulse Resp BP Pulse Ox 98.6 F 69 16 98/55 98 06/05/18 06:46 10/31/17 06:46 10/31/17 06:46 10/31/17 06:46 10/31/17 06:46 Exam: Gen.: He is a well-developed well-nourished male lying comfortably in bed who appears in no acute distress HEENT: Head is atraumatic and normocephalic. Eyes: EOMI. There is no scleral icterus. Mouth: Mucosa is moist. Neck: Supple and nontender. There is no thyromegaly or adenopathy noted. Heart: Regular without murmurs gallops or ectopics Lungs: No wheezes or crackles are heard. Abdomen: Soft and nontender. No masses or guarding are noted. Extremities: There is no cyanosis edema or clubbing noted. Dorsalis pedis and posttibial pulses are 1-2 over 2 bilaterally. Neurologic: Mental status: He is talkative and a good historian. Cranial nerves : Smile is symmetric. Forehead wrinkles bilaterally. Tongue protrudes midline. EOMI. Motor: There is no pronator drift. Cerebellar: Finger to nose is intact bilaterally. Skin: Warm and dry Internal Med - H&P Results - Labs CBC & Chem 7: 10/31/17 04:18 10/31/17 04:18 Labs: Short CBC 10/31/17 Range/Units 04:18 WBC 9.1 (4.3-11.1) K/mcL Hgb 11.6 L D (12.9-16.9) g/dL Hct 35.2 L (37.5-50.1) % Plt Count 313 (140-400) K/mcL Neutrophils # 6.8 (1.6-8.9) K/mcL BMP 10/31/17 04:18 Sodium 139 Potassium 3.6 Chloride 104 Carbon Dioxide 25 BUN 27 H Creatinine 1.62 H Glucose 103 Calcium 8.9 Urine 10/31/17 Range/Units 02:52 Urine Color Dark Yellow (Yellow) Urine Clarity Cloudy A (Clear) Urine pH 6.5 (5.0-8.0) pH Units Ur Specific Schneider >= 1.030 H (1.010-1.025) Urine Protein >=300 H (Neg-Trace) mg/dL Urine Glucose (UA) 100 H (Normal) mg/dL
[2017-10-31] MEDS: 0.45 % Sodium Chloride w/KCl 20 MEQ/1,000 ML MLS IVC SCH ×2 (13:02→21:49)
[2017-10-31] MEDS: Ondansetron 4 MG/2 ML VIAL IVP PRN (16:51)
[2017-11-01] MEDS: Ondansetron 4 MG/2 ML VIAL IVP PRN (05:05)
[2017-11-01] MEDS ORDERED: *HR* Enoxaparin 40 MG/0.4 ML SYRINGE SQ SCH (06:00)
[2017-11-01 06:13] LABS: Basophils # 0.1 K/mcL (0.0-0.2); Basophils % 1.1 %; Eosinophils # 0.1 K/mcL (0.0-0.6); Eosinophils % 1.1 %; Hematocrit 34.6 % (37.5-50.1); Hemoglobin 11.6 g/dL (12.9-16.9); Immature Granulocytes % 0.3 % (0-4); Lymphocytes # 2.4 K/mcL (0.6-4.6); Lymphocytes % 30.2 %; Mean Corpuscular HGB Conc 33.5 g/dL (31.6-35.5); Mean Corpuscular Hemoglobin 32.3 pg (28.0-33.3); Mean Corpuscular Volume 96.4 fL (83.0-100.0); Mean Platelet Volume 9.4 fL (9.4-12.4); Monocytes # 0.7 K/mcL (0.0-1.3); Monocytes % 8.7 %; Neutrophils # 4.7 K/mcL (1.6-8.9); Platelet Count 318 K/mcL (140-400); Red Blood Count 3.59 M/mcL (4.19-5.50); Red Cell Distribution Width 13.1 % (11.5-14.5); Segmented Neutrophils % 58.6 %
[2017-11-01 06:34] LABS: BUN/Creatinine Ratio 13 (6-26); Blood Urea Nitrogen 13 mg/dL (6-20); Calcium 9.3 mg/dL (8.6-10.3); Carbon Dioxide 27 mEq/L (23-29); Chloride 102 mEq/L (98-107); Glucose 96 mg/dL (70-105); Osmolality,Calculated 282 (280-300); Potassium 3.3 mEq/L (3.5-5.1); Sodium 136 mEq/L (136-145); eGFR For African Americans > 60 (> 60); eGFR For Non-African Americans > 60 (> 60)
[2017-11-01 08:33] VITALS: BP 126/81
[2017-11-01 08:57] LABS: % Iron Saturation 8 % (20-55); Iron 32 mcg/dL (65-175); Transferrin 269 mg/dL (203-362)
[2017-11-01 09:15] LABS: Ferritin 37 ng/mL (20-250)
[2017-11-01 09:21] LABS: Folate 9.1 ng/mL (3.0-16.0)
[2017-11-01] MEDS: 0.45 % Sodium Chloride w/KCl 20 MEQ/1,000 ML MLS IVC SCH (09:37)
[2017-11-01] MEDS: *HR* Nalbuphine 10 MG/ML AMPUL IVP PRN (09:38)
--- NOTE | 2017-11-01 10:24 | Discharge Summary ---
Date of Encounter: 11/01/17 Time of Encounter: 10:15 - Discharge Diagnosis (1) Acute renal failure (ARF) Priority: Primary Status: Resolved Qualifiers: Acute renal failure type: unspecified Qualified Code(s): N17.9 - Acute kidney failure, unspecified (2) HTN (hypertension) Priority: Secondary Status: Chronic Qualifiers: Hypertension type: essential hypertension Qualified Code(s): I10 - Essential (primary) hypertension (3) Anemia Priority: Secondary Status: Chronic Qualifiers: Anemia type: other cause Other causes of anemia: chronic disease, other Qualified Code(s): D63.8 - Anemia in other chronic diseases classified elsewhere Hospital course: Mr. Haines is a 42 year old male who came to emergency room stating he had persistent vomiting onset October 28. He reports going to emergency room at [place] and receiving treatment and being released. No additional medications were given at discharge to treat nausea. He had continued episodes of vomiting with worsening dysuria and significant decreased urinary output. He came to [facility] emergency room for evaluation. He was found to have acute renal failure and leukocytosis with left shift. He was admitted to [facility] floor for ongoing care needs. Initial orders were written by the emergency room physician. I saw him on October 31 and performed a history and physical. He was given IV fluids. Diuretics were held. Renal indices normalized with BUN and creatinine decreasing to 13 and 0.99 respectively by day of discharge. Estimated GFR was greater than 60. He will remain off diuretics at discharge. Anemia testing showed iron 32, transferrin saturation 8%, transferrin 269, ferritin 37, B12 251, and folate 9.1. He will be given ferrous sulfate with vitamin C. Leukocytosis with left shift resolved by the morning of October 31. He will not be given antibiotics. Antihypertensive medications except labetalol were held. His blood pressure remained in a satisfactory range. He will remain on only labetalol at discharge. Blood pressure to be monitored and medications adjusted as needed. On November 01 he felt stable for discharge home. He will follow with his PCP Fernando Del Valle CNP within 1 week. - Time Spent with Patient Total time spent providing and/or coordinating discharge services: - Discharge Medications Prescriptions: Ascorbic Acid [C-500] 500 mg PO DAILY #30 tablet Ferrous Sulfate 325 mg PO DAILY #30 tablet Ondansetron [Zofran ODT] 8 mg SL Q8H PRN #6 tab PRN Reason: Nausea Home Medications: Tamsulosin [Flomax] 0.4 mg PO DAILY 08/26/16 [History] Oxybutynin [Ditropan] 0.5 mg PO QID 10/08/16 [History] Labetalol HCl 200 mg PO BID 09/14/17 [History] Ascorbic Acid [C-500] 500 mg PO DAILY #30 tablet 11/01/17 [Rx] Ferrous Sulfate 325 mg PO DAILY #30 tablet 11/01/17 [Rx] Ondansetron [Zofran ODT] 8 mg SL Q8H PRN #6 tab 11/01/17 [Rx] Allergies/Adverse Reactions: 3 Allergy/AdvReac Type Severity Reaction Status Date / Time ketorolac [From Toradol] Allergy Rash Verified 09/14/17 16:22 Date of admission: 10/31/17 18:32 Primary care physician: Fernando Del Valle CNP - Constitutional Vitals: Temp Pulse Resp BP Pulse Ox 98.1 F 81 17 126/81 96 11/01/17 08:00 11/01/17 08:00 11/01/17 08:00 11/01/17 08:00 11/01/17 08:00 - Patient Status Disposition: Home, Self-Care Functional capacity at discharge: independent ambulation Overall status at discharge: patient is progressing back to baseline - Discharge Instructions Follow Up With: Fernando Del Valle CNP [Primary Care Provider] - 1 week - Diet and Activity Activity: resume usual activities as tolerated Diet: advance to your usual diet
== END 2017-11-01 11:10 | disposition home or self-care (01) | DRG 469 ==
LOC: EMEROOPIK 18:55 → INPPIK 18:55
PROVIDERS: ADMIT Internal Medicine; ATTEND Internal Medicine

== ENCOUNTER 2018-08-01 05:57 | Observation (INO) ==
--- NOTE | 2018-08-01 06:05 | Emergency Department Note ---
Disposition Clinical Impression: Acute renal insufficiency, Persistent vomiting, Right flank pain Disposition: Admitted As Inpatient Condition: Good Forms: ED Satisfaction Letter, Work/School Release Back Pain HPI - General Chief Complaint: ED Abdominal Pain Stated Complaint: right side pain Time Seen by Provider: 08/01/18 06:06 Source: patient Mode of arrival: private vehicle Limitations: no limitations Nursing Notes Reviewed: Yes Vital Signs Reviewed: Yes - History of Present Illness HPI Narrative: Patient presents with 2-3 days of intermittent nausea and vomiting. He states he has had decreased oral intake and with that lower blood pressure. Surgical feels dizzy with standing. He has a history of previous renal trouble in acute renal insufficiency/failure. He is concerned that his "kidneys are shutting down". He has had some pain in the right lateral abdomen into the right flank. He describes this is aching to stabbing in character. He states that pain has been present for months and is been relatively chronic since his last surgery, ureter reimplantation, in 2017. He denies any urinary frequency, dysuria or blood. He has had a feeling of chills without fevers. He denies any type of impact, injury or strain. He is not having visible redness or rash. He denies cough, congestion or shortness of breath. He denies any ill exposures. He states he first went to [facility] emergency department and was told it would be 2-3 hours until he could be seen. He is therefore come here for evaluation. He states the last urologist he saw was Dr. Coates at [facility]. He has had numerous CTs of his abdomen over the course of his acute illness and surgeries in 2016 in 2017. His last CT abdomen at this facility was on 04/19/2017. He had 21 CT studies of his abdomen and pelvis from 10/01/2015 until 04/19/2017 in the [facility] system alone. Pt Subjective Complaint: back pain Onset (ago): month(s) Duration: gradually worsening Similar Symptoms Previously: Yes Location: right flank Pain Severity: moderate, severe Quality: sharp, dull Radiation: none Improves with: none Worsens with: none Context: history of kidney stones Associated symptoms: Reports: chills, abdominal pain. Denies: numbness, weakness, difficulty walking, incontinence of bowel/bladder, fever, dysuria, hematuria Treatments prior to arrival: other (Zofran) - Related Data Home Medications Medication Instructions Recorded Confirmed Tamsulosin [Flomax] 0.4 mg PO DAILY 08/26/16 08/01/18 Previous Rx's Medication Instructions Recorded Ondansetron [Zofran ODT] 8 mg SL Q8H PRN #6 tab 11/01/17 Allergies Allergy/AdvReac Type Severity Reaction Status Date / Time ketorolac [From Toradol] Allergy Rash Verified 08/01/18 06:03 All systems ED: reviewed and negative except as stated. Past Medical History - Past Medical History Attestation: Yes The following information was validated with the patient. Source: patient, old records reviewed, obtained from family, nursing notes reviewed Medical history: Reports: arthritis, hypertension, kidney stones, renal disease, other Surgical history: Reports: orthopedic, other (Right shoulder replacement), ureteral stent, other (Prior nephrostomy tubes prior to ureter reimplantation 01/2017) Psychiatric history: Reports: anxiety, panic disorder - Social History Smoking Status: Never smoker Smokeless Tobacco Status: No Alcohol use: Reports: none Drug use: Reports: none Physical Exam - General Limitations: no limitations General appearance: alert - Head Head exam: atraumatic, normocephalic, normal inspection - Eye Eye exam: Present: normal appearance, PERRL, EOMI. Absent: scleral icterus, conjunctival injection - ENT ENT exam: normal exam, normal oropharynx, mucous membranes moist - Neck Neck exam: Present: normal inspection, full ROM, trachea midline - Chest Chest inspection: Present: normal inspection, symmetric chest wall rise - Respiratory Respiratory exam: Present: normal lung sounds bilaterally. Absent: respiratory distress, wheezes, prolonged expiratory phase - Cardiovascular Cardiovascular exam: Present: regular rate, normal rhythm, normal heart sounds - Abdominal Exam Abdominal exam: Present: soft, tenderness (Mild to moderate across the right paracolic gutter.), normal bowel sounds. Absent: distention, guarding, rebound, rigidity, mass, pulsatile mass, hernia - Extremities Exam Extremities exam: Present: normal inspection, full ROM, normal capillary refill. Absent: tenderness, pedal edema - Expanded Lower Extremity Exam Neurovascular/Tendon exam: Present: normal capillary refill. Absent: motor deficit, sensory deficit, tendon deficit Gait: observed and normal - Back Exam Back exam: Present: normal inspection, full ROM, other (Scar of previous right nephrostomy tube). Absent: tenderness, CVA tenderness (R), CVA tenderness (L) - Neurological Exam Neurological exam: Present: alert, oriented X3, normal gait - Psychiatric Psychiatric exam: Present: normal affect, normal mood. Absent: agitated, anxious - Skin Skin exam: Present: warm, dry, intact, normal color. Absent: diaphoresis, pallor Course Course Narrative: With return of the patient's blood work, care is discussed with the patient and his significant other. He does have acute renal insufficiency relative to his usual baseline creatinine of less than 1. I recommended continued inpatient observation with aggressive hydration. He was in agreement and Dr. Traylor was contacted. Verbal orders have been obtained for the patient's inpatient observation. Vital Signs Temperature 97.5 F L 08/01/18 05:58 Pulse Rate 78 08/01/18 05:58 Respiratory Rate 16 08/01/18 05:58 Blood Pressure 102/71 08/01/18 05:58 O2 Sat by Pulse Oximetry 98 08/01/18 05:58 Temperature 97.5 F L 08/01/18 05:58 Pulse Rate 65 08/01/18 06:44 Respiratory Rate 20 08/01/18 06:44 Blood Pressure 121/84 08/01/18 06:44 O2 Sat by Pulse Oximetry 100 08/01/18 06:44 Oxygen Delivery Oxygen Delivery Room Air Back Pain/Injury - Differential Diagnosis Differential Diagnosis: Likely: renal colic - Medical Records Medical records reviewed: Yes I reviewed the patient's medical records. - Lab Data Lab results reviewed: Yes I reviewed the patient's lab results. Result diagrams: 08/01/18 06:36 08/01/18 06:36 Lab Results 08/01/18 08/01/18 Range/Units 06:36 06:36 WBC 7.7 (4.3-11.1) K/mcL RBC 4.00 L (4.19-5.50) M/mcL Hgb 12.8 L (12.9-16.9) g/dL Hct 39.1 (37.5-50.1) % MCV 97.8 (83.0-100.0) fL MCH 32.0 (28.0-33.3) pg MCHC 32.7 (31.6-35.5) g/dL RDW 14.6 H (11.5-14.5) % Plt Count 359 (140-400) K/mcL MPV 9.3 L (9.4-12.4) fL Immature Gran % 0.4 (0-4) % Seg Neutrophils % 71.0 % Lymphocytes % 19.0 % Monocytes % 8.2 % Eosinophils % 0.9 % Basophils % 0.5 % Neutrophils # 5.5 (1.6-8.9) K/mcL Lymphocytes # 1.5 (0.6-4.6) K/mcL Monocytes # 0.6 (0.0-1.3) K/mcL Eosinophils # 0.1 (0.0-0.6) K/mcL Basophils # 0.0 (0.0-0.2) K/mcL Sodium 134 L (136-145) mEq/L Potassium 3.5 (3.5-5.1) mEq/L Chloride 99 (98-107) mEq/L Carbon Dioxide 24 (23-29) mEq/L BUN 51 H (6-20) mg/dL Creatinine 2.37 H (0.70-1.30) mg/dL Est GFR ( Amer) 36 L (> 60) Est GFR (Non-Af Amer) 30 L (> 60) BUN/Creatinine Ratio 22 (6-26) Glucose 108 H (70-105) mg/dL Calculated Osmolality 292 (280-300) Calcium 9.3 (8.6-10.3) mg/dL Total Bilirubin 0.8 (0.3-1.0) mg/dL Direct Bilirubin 0.1 (0.0-0.2) mg/dL Indirect Bilirubin 0.7 (0.0-1.2) mg/dL AST 11 L (13-39) Units/L ALT 24 (7-52) Units/L Alkaline Phosphatase 63 (34-104) Units/L Serum Total Protein 7.1 (6.4-8.9) g/dL Albumin 4.0 (3.5-5.7) g/dL Globulin 3.1 (2.4-3.5) g/dL Albumin/Globulin Ratio 1.3 (1.1-2.2) Lipase 28 (11-82) Units/L
[2018-08-01] MEDS ORDERED: Ondansetron 4 MG/2 ML VIAL IVP ONE (06:12)
[2018-08-01] MEDS ORDERED: *HR* HYDROmorphone (PF) 1 MG/ML SYRINGE IVP ONE (06:12)
[2018-08-01] MEDS ORDERED: 0.9 % Sodium Chloride 1,000 ML IVC ONE (06:12)
[2018-08-01 06:41] LABS: Basophils % 0.5 %; Eosinophils # 0.1 K/mcL (0.0-0.6); Eosinophils % 0.9 %; Hematocrit 39.1 % (37.5-50.1); Hemoglobin 12.8 g/dL (12.9-16.9); Immature Granulocytes % 0.4 % (0-4); Lymphocytes # 1.5 K/mcL (0.6-4.6); Mean Corpuscular HGB Conc 32.7 g/dL (31.6-35.5); Mean Corpuscular Volume 97.8 fL (83.0-100.0); Mean Platelet Volume 9.3 fL (9.4-12.4); Monocytes # 0.6 K/mcL (0.0-1.3); Monocytes % 8.2 %; Neutrophils # 5.5 K/mcL (1.6-8.9); Platelet Count 359 K/mcL (140-400); Red Cell Distribution Width 14.6 % (11.5-14.5); White Blood Count 7.7 K/mcL (4.3-11.1)
[2018-08-01 07:01] LABS: Albumin/Globulin Ratio 1.3 (1.1-2.2); Bilirubin,Direct 0.1 mg/dL (0.0-0.2); Bilirubin,Indirect 0.7 mg/dL (0.0-1.2); Bilirubin,Total 0.8 mg/dL (0.3-1.0); Calcium 9.3 mg/dL (8.6-10.3); Globulin 3.1 g/dL (2.4-3.5); Potassium 3.5 mEq/L (3.5-5.1); Total Protein 7.1 g/dL (6.4-8.9)
[2018-08-01] MEDS ORDERED: 0.9 % Sodium Chloride 1,000 ML ONE (07:13)
[2018-08-01] MEDS ORDERED: 0.9 % Sodium Chloride 1,000 ML IVC SCH (07:15)
[2018-08-01] MEDS ORDERED: Naloxone 0.4 MG/ML INJ IVP PRN (07:56)
[2018-08-01] MEDS ORDERED: Acetaminophen 325 MG TABLET PO PRN (07:56)
[2018-08-01] MEDS ORDERED: Ondansetron 4 MG/2 ML VIAL IVP PRN (07:56)
[2018-08-01] MEDS: *HR* OxyCODONE Immed Rel 5 MG TABLET PO PRN ×3 (08:11→20:41)
[2018-08-01] MEDS: *HR* Promethazine 25 MG/ML VIAL IVP PRN (08:13)
[2018-08-01] MEDS: 0.9 % Sodium Chloride 1,000 ML IVC SCH ×2 (08:19→12:49)
--- NOTE | 2018-08-01 12:37 | Internal Med History&Physical ---
Date of Encounter: 08/01/18 Time of Encounter: 12:10 Assessment and Plan (1) Nausea and vomiting Current visit: No Status: Acute Possibly secondary to acute gastroenteritis. IV fluids and antiemetics will be ordered. Qualifiers: Vomiting type: unspecified Vomiting Intractability: unspecified Qualified Code(s): R11.2 - Nausea with vomiting, unspecified (2) Acute renal failure (ARF) Current visit: No Status: Acute IV fluids have been started. Anti-emetics will be given as needed. Qualifiers: Acute renal failure type: unspecified Qualified Code(s): N17.9 - Acute kidney failure, unspecified (3) Anemia Current visit: No Status: Chronic Anemia testing will be ordered in a.m. Qualifiers: Anemia type: other cause Other causes of anemia: chronic disease, other Qualified Code(s): D63.8 - Anemia in other chronic diseases classified elsewhere Internal Medicine - H&P: HPI Chief complaint: Vomiting Admitted From: Emergency Dept Plans for Post Hospital Care: Home History of present illness: Mr. Haines is a 43 year old male who came to emergency room with 3 day history of vomiting. He reports a small amount of dark bloody material was seen in at least one episode of vomiting. He has had chills but denies diarrhea or fever. He has had no significant abdominal or chest pain other than his chronic right lower quadrant pain attributed to reflux. He was evaluated in emergency room and found to have acute renal insufficiency with likely dehydration. He was admitted to [facility] floor for ongoing care needs. He denies family contacts with similar symptoms. GI history is negative for known disorders of liver gallbladder or exocrine pancreas. Past Med Surg Social Fam HX - Past Medical History Medical history: arthritis, hypertension, kidney stones, renal disease, other Additional medical history: kidney failure Psychiatric history: anxiety, panic disorder - Past Surgical History Surgical History: orthopedic, other, ureteral stent, other Additional surgical history: ureter bypass, Kidney stones removed, nephrostomy right kidney x1 year, right shoulder - Social History Smoking Status: Never smoker Smokeless Tobacco Status: No Alcohol use: none Drug use: none - Family History Sister Family Member Ethnicity: Non- Living Status: Still Living Father Family Member Ethnicity: Non- Living Status: Still Living Hx Family Cardiac Disorders: Yes (high blood pressure, heart disease) Hx Family Cancer: Yes Hx Family Endocrine Disorder: Yes (Diabetes) Mother Adopted: No Family Member Ethnicity: Non- Living Status: Still Living Hx Family Cardiac Disorders: Yes (high blood pressure, heart disease) Hx Family Cancer: Yes (moms brothers had pancreatic cancer) Hx Family Endocrine Disorder: Yes Internal Medicine - H&P: Meds Tamsulosin [Flomax] 0.4 mg PO DAILY 08/26/16 [History] Ondansetron [Zofran ODT] 8 mg SL Q8H PRN #6 tab 11/01/17 [Rx] Allergy/AdvReac Type Severity Reaction Status Date / Time ketorolac [From Toradol] Allergy Rash Verified 08/01/18 06:03 All Systems PM: A 10-system review of systems was performed and is negative for pertinent findings except as documented above in the HPI. Review of systems: Review of systems from his October 2017 [facility] hospitalization were reviewed and revised as below. General: His weight has been stable at approximately 88 kg since October 2017 hospitalization. Cardiovascular: He has hypertension but no known MS heart failure angina DVT or pulmonary embolus. He reports blood pressures have been well controlled and he has not required any antihypertensive medication for several months. He claims he had exercise stress test at [facility] in August 2015 which did not show ischemia. Respiratory: He is a lifelong nonsmoker and has no known chronic lung disease GI: As per history of present illness : He has had multiple right ureter benign tumors. Surgical treatment February 2016 to remove a ureteral tumor at the UVJ tumor resulted in significant reflux. A distal right ureter stent was placed time of surgery. Because of symptomatic reflux a right nephrostomy tube was placed and remained until a reimplantation of right ureter surgery January 2017. There has been no significant change in reflux symptoms. He denies other kidney or bladder disorders. Neurologic: He denies large distribution strokes or seizures Endocrine: He denies diabetes thyroid disease or hyperlipidemia Hematology/oncology: He had anemia with iron deficiency documented during his October 2017 hospitalization. He was discharged on ferrous sulfate with ascorbic acid but these have not been continued. He denies internal malignancies Psychiatric: He has anxiety and depression but denies other mental health issues [place] skeletal: He has DJD but denies gout or other bone joint or muscle disord ers. - Constitutional Vitals: Temp Pulse Resp BP Pulse Ox 97.9 F 63 16 94/51 98 08/01/18 10:28 08/01/18 10:28 08/01/18 10:28 08/01/18 10:28 08/01/18 10:28 Exam: Gen.: He is a well-developed well-nourished male lying quietly in bed who appears in no acute distress HEENT: Head is atraumatic and normocephalic. Eyes: EOMI. There is no scleral icterus. Mouth: Mucosa is moist. Neck: Supple and nontender. There is no thyromegaly or adenopathy noted. Heart: Regular without murmurs gallops or ectopics Lungs: No wheezes or crackles are heard. Abdomen: Soft and nontender. No masses or guarding are noted. Extremities: There is no cyanosis edema or clubbing noted. Dorsalis pedis and posttibial pulses are 1-2 over 2 bilaterally. Neurologic: Mental status: He is talkative and a good historian. Cranial nerves: Smile is symmetric. Forehead wrinkles bilaterally. Tongue protrudes midline. EOMI. Motor: There is no pronator drift. Cerebellar: Fair to nose is intact bilaterally. Skin: Warm and dry Internal Med - H&P Results - Labs CBC & Chem 7: 08/01/18 06:36 08/01/18 06:36 Labs: Short CBC 08/01/18 Range/Units 06:36 WBC 7.7 (4.3-11.1) K/mcL Hgb 12.8 L (12.9-16.9) g/dL Hct 39.1 (37.5-50.1) % Plt Count 359 (140-400) K/mcL Neutrophils # 5.5 (1.6-8.9) K/mcL BMP 08/01/18 06:36 Sodium 134 L Potassium 3.5 Chloride 99 Carbon Dioxide 24 BUN 51 H Creatinine 2.37 H Glucose 108 H Calcium 9.3 Liver Function 08/01/18 Range/Units 06:36 Total Bilirubin 0.8 (0.3-1.0) mg/dL Direct Bilirubin 0.1 (0.0-0.2) mg/dL AST 11 L (13-39) Units/L ALT 24 (7-52) Units/L Alkaline Phosphatase 63 (34-104) Units/L Albumin 4.0 (3.5-5.7) g/dL
[2018-08-01] MEDS: 0.45 % Sodium Chloride w/KCl 20 MEQ/1,000 ML MLS IVC SCH ×2 (13:49→21:55)
[2018-08-01 15:19] LABS: Bilirubin,Urine Negative (Negative); Blood,Urine Negative (Negative); Clarity,Urine Clear (Clear); Color,Urine Yellow (Yellow); Glucose,Urine (UA) Normal (Normal); Ketones,Urine Negative (Negative); Leukocyte Esterase,Urine Negative (Negative); Nitrite,Urine Negative (Negative); PH,Urine 5.5 pH Units (5.0-8.0); Protein,Urine Trace mg/dL (Neg-Trace); Specific Gravity,Urine >= 1.030 (1.010-1.025); Urobilinogen,Urine Normal (Normal)
[2018-08-02 05:11] LABS: Basophils # 0.1 K/mcL (0.0-0.2); Basophils % 1.1 %; Eosinophils # 0.2 K/mcL (0.0-0.6); Eosinophils % 2.9 %; Hematocrit 35.6 % (37.5-50.1); Hemoglobin 11.9 g/dL (12.9-16.9); Immature Granulocytes % 0.2 % (0-4); Lymphocytes # 2.1 K/mcL (0.6-4.6); Mean Corpuscular HGB Conc 33.4 g/dL (31.6-35.5); Mean Corpuscular Hemoglobin 32.4 pg (28.0-33.3); Monocytes # 0.5 K/mcL (0.0-1.3); Neutrophils # 2.8 K/mcL (1.6-8.9); Platelet Count 302 K/mcL (140-400); Red Blood Count 3.67 M/mcL (4.19-5.50); Red Cell Distribution Width 14.2 % (11.5-14.5); Segmented Neutrophils % 49.8 %; White Blood Count 5.6 K/mcL (4.3-11.1)
[2018-08-02 05:31] LABS: BUN/Creatinine Ratio 23 (6-26); Blood Urea Nitrogen 35 mg/dL (6-20); Calcium 8.6 mg/dL (8.6-10.3); Carbon Dioxide 26 mEq/L (23-29); Chloride 101 mEq/L (98-107); Glucose 117 mg/dL (70-105); Osmolality,Calculated 289 (280-300); Potassium 3.6 mEq/L (3.5-5.1); Sodium 135 mEq/L (136-145); eGFR For African Americans > 60 (> 60); eGFR For Non-African Americans 51 (> 60)
[2018-08-02 05:32] LABS: Magnesium 2.1 mg/dL (1.6-2.6); Uric Acid 6.3 mg/dL (2.3-7.6)
[2018-08-02] MEDS: 0.45 % Sodium Chloride w/KCl 20 MEQ/1,000 ML MLS IVC SCH ×3 (05:35→22:32)
[2018-08-02] MEDS: *HR* OxyCODONE Immed Rel 5 MG TABLET PO PRN ×3 (08:18→22:31)
--- NOTE | 2018-08-02 10:24 | Internal Med Progress Note ---
Date of Encounter: 08/02/18 Time of Encounter: 10:05 - Assessment and plan (1) Nausea and vomiting Current Visit: No Status: Acute Assessment and plan: August 02. Continue IV fluids and prn anti-emetics. Qualifiers: Vomiting type: unspecified Vomiting Intractability: unspecified Qualified Code(s): R11.2 - Nausea with vomiting, unspecified (2) Acute renal failure (ARF) Current Visit: No Status: Acute Assessment and plan: August 02. BUN and creatinine have significantly improved to 35 and 1.49 respectively with estimated GFR 51. Continue IV fluids and recheck labs in a.m. Qualifiers: Acute renal failure type: unspecified Qualified Code(s): N17.9 - Acute kidney failure, unspecified (3) Anemia Current Visit: No Status: Chronic Assessment and plan: August 02. Anemia testing is been ordered. Qualifiers: Anemia type: other cause Other causes of anemia: chronic disease, other Qualified Code(s): D63.8 - Anemia in other chronic diseases classified elsewhere - Subjective Interval history: August 02. He has no new complaints and feels slightly better. He has had nausea but no vomiting since I saw him yesterday. - Constitutional Vitals: Temp Pulse Resp BP Pulse Ox 98.2 F 80 16 116/71 98 08/02/18 07:48 08/02/18 07:48 08/02/18 07:48 08/02/18 07:48 08/02/18 07:48 Exam: He is resting comfortably in bed and appears in no acute distress. His affect is bright and cheerful. I reviewed his medications and lab results. Internal Medicine: Result - Labs CBC & Chem 7: 08/02/18 04:52 08/02/18 04:52 Labs: Short CBC 08/02/18 Range/Units 04:52 WBC 5.6 (4.3-11.1) K/mcL Hgb 11.9 L (12.9-16.9) g/dL Hct 35.6 L (37.5-50.1) % Plt Count 302 (140-400) K/mcL Neutrophils # 2.8 (1.6-8.9) K/mcL BMP 08/02/18 04:52 Sodium 135 L Potassium 3.6 Chloride 101 Carbon Dioxide 26 BUN 35 H Creatinine 1.49 H Glucose 117 H Calcium 8.6 Urine 03/06/19 Range/Units 14:50 Urine Color Yellow (Yellow) Urine Clarity Clear (Clear) Urine pH 5.5 (5.0-8.0) pH Units Ur Specific [place] >= 1.030 H (1.010-1.025) Urine Protein Trace (Neg-Trace) mg/dL Urine Glucose (UA) Normal (Normal) mg/dL Consult Discharge Plan - Plan Referrals: Fernando Del Valle, [employer] [Primary Care Provider] - 1 week
[2018-08-02] MEDS: *HR* HYDROcodone/Acet 5/325 mg TABLET PO PRN ×2 (11:15→19:45)
[2018-08-02] MEDS: *HR* Promethazine 25 MG/ML VIAL IVP PRN ×2 (14:49→22:30)
[2018-08-02 16:59] LABS: % Iron Saturation 15 % (20-55); Iron 52 mcg/dL (65-175); Transferrin 245 mg/dL (203-362)
[2018-08-02 17:12] LABS: Ferritin 91 ng/mL (20-250)
[2018-08-02 17:17] LABS: Folate 9.6 ng/mL (3.0-16.0)
[2018-08-03] MEDS: *HR* HYDROcodone/Acet 5/325 mg TABLET PO PRN (04:39)
[2018-08-03] MEDS: *HR* Promethazine 25 MG/ML VIAL IVP PRN (04:39)
[2018-08-03] MEDS: 0.45 % Sodium Chloride w/KCl 20 MEQ/1,000 ML MLS IVC SCH (06:34)
[2018-08-03] MEDS: *HR* OxyCODONE Immed Rel 5 MG TABLET PO PRN (06:37)
[2018-08-03 10:38] VITALS: BP 142/85
[2018-08-03 10:42] LABS: BUN/Creatinine Ratio 18 (6-26); Blood Urea Nitrogen 21 mg/dL (6-20); Calcium 8.9 mg/dL (8.6-10.3); Carbon Dioxide 29 mEq/L (23-29); Chloride 103 mEq/L (98-107); Glucose 113 mg/dL (70-105); Osmolality,Calculated 288 (280-300); Potassium 4.2 mEq/L (3.5-5.1); Sodium 137 mEq/L (136-145); eGFR For African Americans > 60 (> 60); eGFR For Non-African Americans > 60 (> 60)
--- NOTE | 2018-08-03 11:19 | Discharge Summary ---
Date of Encounter: 08/03/18 Time of Encounter: 11:05 - Discharge Diagnosis (1) Nausea and vomiting Priority: Primary Status: Resolved Qualifiers: Vomiting type: unspecified Vomiting Intractability: unspecified Qualified Code(s): R11.2 - Nausea with vomiting, unspecified (2) Acute renal failure (ARF) Priority: Secondary Status: Resolved Qualifiers: Acute renal failure type: unspecified Qualified Code(s): N17.9 - Acute kidney failure, unspecified (3) Anemia Priority: Secondary Status: Chronic Qualifiers: Anemia type: other cause Other causes of anemia: chronic disease, other Qualified Code(s): D63.8 - Anemia in other chronic diseases classified elsewhere Hospital course: Mr. Haines is a 43 year old male who came to emergency room with 3 day history of vomiting. He reports a small amount of dark bloody material was seen in at least one episode of vomiting. He has had chills but denies diarrhea or fever. He has had no significant abdominal or chest pain other than his chronic right lower quadrant pain attributed to reflux. He was evaluated in emergency room and found to have acute renal insufficiency with likely dehydration. He was admitted to [facility] for ongoing care needs. Initial orders were written by the emergency room physician. I saw him on August 01 and performed a history and physical. He was given IV fluids and prn antiemetics. He had no further vomiting after the first hospital day. He was able to tolerate adequate amount of food and fluids. BUN and creatinine decreased to 21 and 1.17 respectively with estimated GFR greater than 60 by day of discharge. I anticipate further improvement will occur since vomiting has resolved. Hemoglobin decreased to 11.9 on August 02. Anemia testing showed iron 52, transferrin saturation 15%, transferrin 245, ferritin 91, B12 390, and folate 9.6. He will be given ferrous sulfate with ascorbic acid at discharge. His PCP can monitor labs. He complained of decreased but ongoing pain in his right flank area. He will be given 12 tablets of Ultram 50 mg to take qid prn. His PCP can further address. He will follow with Fernando Del Valle CNP within 1 week. - Time Spent with Patient Total time spent providing and/or coordinating discharge services: - Discharge Medications Prescriptions: New Ascorbic Acid [C-500] 500 mg PO DAILY #30 tablet Ferrous Sulfate 325 mg PO DAILY #30 tablet Tramadol HCl [Ultram] 50 mg PO Q6H PRN 3 Days #12 tab PRN Reason: Pain Continue Tamsulosin [Flomax] 0.4 mg PO DAILY Ondansetron [Zofran ODT] 8 mg SL Q8H PRN #6 tab PRN Reason: Nausea Home Medications: Tamsulosin [Flomax] 0.4 mg PO DAILY 08/26/16 [History] Ondansetron [Zofran ODT] 8 mg SL Q8H PRN #6 tab 11/01/17 [Rx] Ascorbic Acid [C-500] 500 mg PO DAILY #30 tablet 08/03/18 [Rx] Ferrous Sulfate 325 mg PO DAILY #30 tablet 08/03/18 [Rx] Tramadol HCl [Ultram] 50 mg PO Q6H PRN 3 Days #12 tab 08/03/18 [Rx] Allergies/Adverse Reactions: Allergy/AdvReac Type Severity Reaction Status Date / Time ketorolac [From Toradol] Allergy Rash Verified 08/01/18 06:03 Date of admission: 08/01/18 07:17 Primary care physician: Fernando Del Valle CNP - Constitutional Vitals: Temp Pulse Resp BP Pulse Ox 98.5 F 76 16 142/85 95 08/03/18 10:36 08/03/18 10:36 08/03/18 10:36 08/03/18 10:36 08/03/18 10:36 - Patient Status Disposition: Home, Self-Care Condition: Good - Discharge Instructions Follow Up With: Fernando Del Valle CNP [Primary Care Provider] - 1 week - Diet and Activity Activity: resume usual activities as tolerated Diet: advance to your usual diet
== END 2018-08-03 12:31 | disposition home or self-care (01) ==
LOC: INPPIK 05:57 → EMEROOPIK 05:57 → INPPIK 07:48
PROVIDERS: ADMIT Internal Medicine; ATTEND Internal Medicine

== ENCOUNTER 2018-09-18 08:01 | Observation (INO) ==
--- NOTE | 2018-09-18 08:06 | Emergency Department Note ---
Disposition Clinical Impression: Abdominal pain, Acute renal insufficiency Disposition: Admitted As Inpatient Condition: Fair Referrals: Fernando Del Valle, LUGGAGE LINER [Primary Care Provider] - Forms: ED Satisfaction Letter, Work/School Release Time of Disposition: 10:00 Abdominal Pain HPI - General Chief Complaint: ED Abdominal Pain Stated Complaint: vomiting, rt flank pain Time Seen by Provider: 09/18/18 08:06 Source: patient, family Mode of arrival: ambulatory Limitations: no limitations Nursing Notes Reviewed: Yes Vital Signs Reviewed: Yes - History of Present Illness HPI Narrative: 43-year-old male who presents today with right flank pain that radiates into his right groin. He is a history of kidney stones renal failure dehydration nausea and vomiting. He states he has been sick for about 3 days. He is vomiting so much now he has some blood in his vomit. He states he always has blood in his urine. He has not noticed more than normal. He always has dysuria and this is unchanged. He has not had fevers. He does have chills. He noticed the spinous blood pressure was starting to drop again and that typically happens when he goes into renal failure. He follows with a seat cover maker at [facility]. He states typically he gets a couple liters of IV fluids and then starts feeling better and can go home. Patient states that the flank pain that he is experiencing today is unchanged from prior and does not feel any worse than normal. Pt Subjective Complaint: flank pain - Related Data Home Medications Medication Instructions Recorded Confirmed Tamsulosin [Flomax] 0.4 mg PO DAILY 08/26/16 09/18/18 Labetalol HCl 300 mg PO BID 09/10/18 09/18/18 Losartan/Hydrochlorothiazide 1 each PO DAILY 09/10/18 09/18/18 [Losartan-Hctz 100-25 mg Tab] amLODIPine [Norvasc] 2.5 mg PO DAILY 09/10/18 09/18/18 Oxybutynin [Ditropan] 5 mg PO TID 09/18/18 09/18/18 Previous Rx's Medication Instructions Recorded Ondansetron [Zofran ODT] 8 mg SL Q8H PRN #6 tab 11/01/17 Promethazine [Phenergan] 25 mg PO Q8HR PRN #15 tablet 09/10/18 Allergies Allergy/AdvReac Type Severity Reaction Status Date / Time ketorolac [From Toradol] Allergy Rash Verified 09/18/18 08:02 Review of Systems: All other systems are negative except as noted/marked Chart generated with voice recognition software Nursing notes reviewed Old records reviewed Abdominal Pain PMH - Past Medical History Medical history: Reports: arthritis, hypertension, kidney stones, renal disease, other Male Surgical History: Reports: other Psychiatric history: Reports: anxiety, panic disorder - Social History Smoking status: Never smoker Alcohol use: Reports: none Drug use: Reports: none Physical Exam General: Mild distress Head: normocephalic, atraumatic Eyes: EOMI, PERRLA mouth: Dry mucous membranes Neck: NO CLA, Supple Chest wall: normal rise, no crepitus, no deformity noted Lungs: moving air well, no distress Heart: RRR, Abd: soft, nontender, BS hypoactive, no CVA tenderness Bladder scan revealed less than 70 mL urine MSK: strength equal in all four extremities Ext: moves all four extremities, no obvious deformities Skin: cap refill normal, warm, dry neuro : CN2-12 grossly intact, A&Ox3 Psych: anxious Course Vital Signs Temperature 97.4 F L 09/18/18 08:05 Pulse Rate 78 09/18/18 08:05 Respiratory Rate 16 09/18/18 08:05 Blood Pressure 95/58 09/18/18 08:05 O2 Sat by Pulse Oximetry 97 09/18/18 08:05 Temperature 97.4 F L 09/18/18 08:05 Pulse Rate 80 09/18/18 10:52 Respiratory Rate 16 09/18/18 10:52 Blood Pressure 107/58 09/18/18 10:52 O2 Sat by Pulse Oximetry 97 09/18/18 10:52 Oxygen Delivery Oxygen Delivery Room Air Abdominal Pain - [facility] Narrative Medical decision making narrative: 43-year-old male who presents today with right flank pain. [facility] did help his pain here. When I went to let them know that he was getting admitted he asked for more pain medicine. I explained he has more Meds ordered on the floor. Patient has a history of dehydration and acute renal failure. CAT scan today did not show any obstructions or kidney stones. I spoke with Dr. Traylor was accepted him in the past and he accepted him today to be hospitalized for his dehydration and acute renal failure for reactive rehydration. No signs of infection today. Patient's comfortable with this plan is no longer nauseated. Catheter has been placed for strict I's and O's until he has good urine output and his creatinine improves. He was seen here just a few days ago and had a normal creatinine but this developed rather quickly. He does fall at [facility] for this however at this point I think we can hydrate him up. I did encourage him to talk to his primary care and his seat cover maker about potentially having outpatient IV fluids ordered for when he becomes dehydrated to avoid this situation. - Medical Records Medical records reviewed: Yes I reviewed the patient's medical records. - Lab Data Lab results reviewed: Yes I reviewed the patient's lab results. Result diagrams: 09/18/18 08:34 09/18/18 08:34 Lab Results 09/18/18 09/18/18 09/18/18 Range/Units 08:34 08:34 08:34 WBC 10.2 (4.3-11.1) K/mcL RBC 3.71 L (4.19-5.50) M/mcL Hgb 11.9 L (12.9-16.9) g/dL Hct 37.2 L (37.5-50.1) % MCV 100.3 H (83.0-100.0) fL MCH 32.1 (28.0-33.3) pg MCHC 32.0 (31.6-35.5) g/dL RDW 15.3 H (11.5-14.5) % Plt Count 362 (140-400) K/mcL MPV 9.4 (9.4-12.4) fL Immature Gran % 0.5 (0-4) % Seg Neutrophils % 70.7 % Lymphocytes % 17.7 % Monocytes % 8.3 % Eosinophils % 2.4 % Basophils % 0.4 % Neutrophils # 7.2 (1.6-8.9) K/mcL Lymphocytes # 1.8 (0.6-4.6) K/mcL Monocytes # 0.9 (0.0-1.3) K/mcL Eosinophils # 0.3 (0.0-0.6) K/mcL Basophils # 0.0 (0.0-0.2) K/mcL VBG Lactic Acid (0.5-2.2) mmol/L Sodium 143 (136-145) mEq/L Potassium 3.1 L (3.5-5.1) mEq/L Chloride 111 H (98-107) mEq/L Carbon Dioxide 25 (23-29) mEq/L BUN 24 H (6-20) mg/dL Creatinine 2.47 H (0.70-1.30) mg/dL Est GFR ( Amer) 35 L (> 60) Est GFR (Non-Af Amer) 29 L (> 60) BUN/Creatinine Ratio 10 (6-26) Glucose 103 (70-105) mg/dL Calculated Osmolality 300 (280-300) Lactic Acid 2.4 H (0.5-2.2) mmol/L Calcium 9.4 (8.6-10.3) mg/dL Magnesium 1.6 (1.6-2.6) mg/dL Urine Color (Yellow) Urine Clarity (Clear) Urine pH (5.0-8.0) pH Units Ur Specific Gate (1.010-1.025) Urine Protein (Neg-Trace) mg/dL Urine Glucose (UA) (Normal) mg/dL Urine Ketones (Negative) mg/dL Urine Blood (Negative) Urine Nitrite (Negative) Urine Bilirubin (Negative) Urine Urobilinogen (Normal) mg/dL Ur Leukocyte Esterase (Negative) Urine Microscopic WBC (0-3) per hpf Ur Squamous Epith Cells (None-Few) per lpf Amorphous Sediment (Few) Urine Bacteria (None-Few) per hpf Granular Casts (None Seen) per lpf Urine Mucus (Few) Ur Culture Indicated? (NO) Urine Opiates Screen (Wpxlvi=119) ng/mL Ur Oxycodone Screen (Cutoff= 100) ng/mL Ur Barbiturates Screen (Mdthfb=177) ng/mL Ur Phencyclidine Scrn (Cutoff=25) ng/mL Ur Amphetamines Screen (Gdzzik=5594) ng/mL U Benzodiazepines Scrn (Mqpryy=645) ng/mL Urine Cocaine Screen (Cutoff= 300) ng/mL U Marijuana (THC) Screen (Cutoff = 50) ng/mL Ur Drug Screen Interp 09/18/18 09/18/18 09/18/18 Range/Units 08:48 09:53 09:53 WBC (4.3-11.1) K/mcL RBC (4.19-5.50) M/mcL Hgb (12.9-16.9) g/dL Hct (37.5-50.1) % MCV (83.0-100.0) fL MCH (28.0-33.3) pg MCHC (31.6-35.5) g/dL RDW (11.5-14.5) % Plt Count (140-400) K/mcL MPV (9.4-12.4) fL Immature Gran % (0-4) % Seg Neutrophils % % Lymphocytes % % Monocytes % % Eosinophils % % Basophils % % Neutrophils # (1.6-8.9) K/mcL Lymphocytes # (0.6-4.6) K/mcL Monocytes # (0.0-1.3) K/mcL Eosinophils # (0.0-0.6) K/mcL Basophils # (0.0-0.2) K/mcL VBG Lactic Acid 2.4 H (0.5-2.2) mmol/L Sodium (136-145) mEq/L Potassium (3.5-5.1) mEq/L Chloride (98-107) mEq/L Carbon Dioxide (23-29) mEq/L BUN (6-20) mg/dL Creatinine (0.70-1.30) mg/dL Est GFR ( Amer) (> 60) Est GFR (Non-Af Amer) (> 60) BUN/Creatinine Ratio (6-26) Glucose (70-105) mg/dL Calculated Osmolality (280-300) Lactic Acid (0.5-2.2) mmol/L Calcium (8.6-10.3) mg/dL Magnesium (1.6-2.6) mg/dL Urine Color Yellow (Yellow) Urine Clarity Cloudy A (Clear) Urine pH 5.0 (5.0-8.0) pH Units Ur Specific [place] >= 1.030 H (1.010-1.025) Urine Protein 100 H (Neg-Trace) mg/dL Urine Glucose (UA) Normal (Normal) mg/dL Urine Ketones 15 H (Negative) mg/dL Urine Blood Negative (Negative) Urine Nitrite Negative (Negative) Urine Bilirubin Moderate H (Negative) Urine Urobilinogen Normal (Normal) mg/dL Ur Leukocyte Esterase Negative (Negative) Urine Microscopic WBC 30-50 H (0-3) per hpf Ur Squamous Epith Cells Few (None-Few) per lpf Amorphous Sediment Moderate H (Few) Urine Bacteria Many H (None-Few) per hpf Granular Casts Moderate H (None Seen) per lpf Urine Mucus Many H (Few) Ur Culture Indicated? NO (NO) Urine Opiates Screen Positive H (Psjkqf=578) ng/mL Ur Oxycodone Screen Positive H (Cutoff= 100) ng/mL Ur Barbiturates Screen Negative (Gqhyez=861) ng/mL Ur Phencyclidine Scrn Negative (Cutoff=25) ng/mL Ur Amphetamines Screen Positive H (Vlvmfl=5514) ng/mL U Benzodiazepines Scrn Negative (Vlqjxx=320) ng/mL Urine Cocaine Screen Negative (Cutoff= 300) ng/mL U Marijuana (THC) Screen Negative (Cutoff = 50) ng/mL Ur Drug Screen Interp See Below 09/18/18 Range/Units 10:20 WBC (4.3-11.1) K/mcL RBC (4.19-5.50) M/mcL Hgb (12.9-16.9) g/dL Hct (37.5-50.1) % MCV (83.0-100.0) fL MCH (28.0-33.3) pg MCHC (31.6-35.5) g/dL RDW (11.5-14.5) % Plt Count (140-400) K/mcL MPV (9.4-12.4) fL Immature Gran % (0-4) % Seg Neutrophils % % Lymphocytes % % Monocytes % % Eosinophils % % Basophils % % Neutrophils # (1.6-8.9) K/mcL Lymphocytes # (0.6-4.6) K/mcL Monocytes # (0.0-1.3) K/mcL Eosinophils # (0.0-0.6) K/mcL Basophils # (0.0-0.2) K/mcL VBG Lactic Acid (0.5-2.2) mmol/L Sodium (136-145) mEq/L Potassium (3.5-5.1) mEq/L Chloride (98-107) mEq/L Carbon Dioxide (23-29) mEq/L BUN (6-20) mg/dL Creatinine (0.70-1.30) mg/dL Est GFR ( Amer) (> 60) Est GFR (Non-Af Amer) (> 60) BUN/Creatinine Ratio (6-26) Glucose (70-105) mg/dL Calculated Osmolality (280-300) Lactic Acid 1.5 (0.5-2.2) mmol/L Calcium (8.6-10.3) mg/dL Magnesium (1.6-2.6) mg/dL Urine Color (Yellow) Urine Clarity (Clear) Urine pH (5.0-8.0) pH Units Ur Specific Gate (1.010-1.025) Urine Protein (Neg-Trace) mg/dL Urine Glucose (UA) (Normal) mg/dL Urine Ketones (Negative) mg/dL Urine Blood (Negative) Urine Nitrite (Negative) Urine Bilirubin (Negative) Urine Urobilinogen (Normal) mg/dL Ur Leukocyte Esterase (Negative) Urine Microscopic WBC (0-3) per hpf Ur Squamous Epith Cells (None-Few) per lpf Amorphous Sediment (Few) Urine Bacteria (None-Few) per hpf Granular Casts (None Seen) per lpf Urine Mucus (Few) Ur Culture Indicated? (NO) Urine Opiates Screen (Laqjth=188) ng/mL Ur Oxycodone Screen (Cutoff= 100) ng/mL Ur Barbiturates Screen (Ltcfib=951) ng/mL Ur Phencyclidine Scrn (Cutoff=25) ng/mL Ur Amphetamines Screen (Ecvnxa=1837) ng/mL U Benzodiazepines Scrn (Ojdskh=924) ng/mL Urine Cocaine Screen (Cutoff= 300) ng/mL U Marijuana (THC) Screen (Cutoff = 50) ng/mL Ur Drug Screen Interp - Radiology Data Radiology results reviewed: Yes I reviewed the patient's radiology results. EXAMINATION: CT OF THE ABDOMEN AND PELVIS WITHOUT CONTRAST 09/18/2018 9:53 am TECHNIQUE: CT of the abdomen and pelvis was performed without the administration of intravenous contrast. Multiplanar reformatted images are provided for review. Dose modulation, iterative reconstruction, and/or weight based adjustment of the mA/kV was utilized to reduce the radiation dose to as low as reasonably achievable. COMPARISON: 09/10/2018. HISTORY: ORDERING SYSTEM PROVIDED HISTORY: r flank colic, hx of stones, ARF FINDINGS: Lower Chest: The lung bases are clear. Organs: The liver, spleen, gallbladder, pancreas and adrenal glands appear unremarkable for a non contrasted study. The kidneys demonstrate no calcifications. No hydronephrosis is seen. No ureteral or bladder calculi are noted. GI/Bowel: Evaluation of the bowel is limited as no enteric contrast was given. No dilated loops of bowel are seen. The appendix is not dilated. Pelvis: The bladder is decompressed secondary to a Arauz catheter. No pelvic masses or fluid collections are seen. Peritoneum/Retroperitoneum: The abdominal aorta is not aneurysmal. No retroperitoneal or mesenteric lymphadenopathy is seen. Bones/Soft Tissues: No acute bony abnormalities are noted. CT/CT abd pelvis wo no iv no oral IMPRESSION: 1. No acute intra-abnormality. 2. No acute intrapelvic abnormality. 3. No urinary tract calcifications seen. D/ / Ernst Marrero MD / Ernst Marrero MD Interpreting Provider: Ernst Marrero MD
[2018-09-18] MEDS ORDERED: 0.9 % Sodium Chloride 1,000 ML IVC ONE ×2 (08:21)
[2018-09-18] MEDS ORDERED: Ondansetron 4 MG/2 ML VIAL IVP ONE (08:21)
[2018-09-18] MEDS ORDERED: *HR* FentaNYL (PF) 100 MCG/2 ML VIAL IVP ONE (08:22)
[2018-09-18 08:41] LABS: Basophils % 0.4 %; Eosinophils # 0.3 K/mcL (0.0-0.6); Eosinophils % 2.4 %; Hematocrit 37.2 % (37.5-50.1); Hemoglobin 11.9 g/dL (12.9-16.9); Immature Granulocytes % 0.5 % (0-4); Lymphocytes # 1.8 K/mcL (0.6-4.6); Lymphocytes % 17.7 %; Mean Corpuscular Hemoglobin 32.1 pg (28.0-33.3); Mean Corpuscular Volume 100.3 fL (83.0-100.0); Mean Platelet Volume 9.4 fL (9.4-12.4); Monocytes # 0.9 K/mcL (0.0-1.3); Monocytes % 8.3 %; Neutrophils # 7.2 K/mcL (1.6-8.9); Platelet Count 362 K/mcL (140-400); Red Blood Count 3.71 M/mcL (4.19-5.50); Red Cell Distribution Width 15.3 % (11.5-14.5); Segmented Neutrophils % 70.7 %
[2018-09-18 09:31] LABS: Calcium 9.4 mg/dL (8.6-10.3); Magnesium 1.6 mg/dL (1.6-2.6)
[2018-09-18 09:42] LABS: Potassium 3.1 mEq/L (3.5-5.1)
[2018-09-18 10:01] LABS: Bilirubin,Urine Moderate (Negative); Blood,Urine Negative (Negative); Color,Urine Yellow (Yellow); Glucose,Urine (UA) Normal (Normal); Ketones,Urine 15 mg/dL (Negative); Leukocyte Esterase,Urine Negative (Negative); Nitrite,Urine Negative (Negative); Protein,Urine 100 mg/dL (Neg-Trace); Specific Gravity,Urine >= 1.030 (1.010-1.025); Urobilinogen,Urine Normal (Normal)
[2018-09-18 10:09] LABS: Amorphous Sediment,Urine Moderate (Few); Bacteria,Urine Many per hpf (None-Few); Granular Casts,Urine Moderate per lpf (None Seen); Squamous Epithelial Cell,Urine Few per lpf (None-Few); WBC,Urine 30-50 per hpf (0-3)
[2018-09-18] MEDS ORDERED: Acetaminophen 325 MG TABLET PO PRN (10:09)
[2018-09-18] MEDS ORDERED: Mag Hydrox/Al Hydrox/Simeth 30 ML UDC PO PRN (10:09)
[2018-09-18] MEDS ORDERED: *HR* HYDROcodone/Acet 5/325 mg TABLET PO PRN (10:09)
[2018-09-18] MEDS ORDERED: *HR* Promethazine 25 MG/ML VIAL IVP PRN (10:09)
[2018-09-18] MEDS ORDERED: Naloxone 0.4 MG/ML INJ IVP PRN (10:09)
[2018-09-18] MEDS ORDERED: MOM Conc 10 ML UD.LIQ PO PRN (10:09)
[2018-09-18] MEDS ORDERED: Ondansetron 4 MG/2 ML VIAL IVP PRN (10:09)
[2018-09-18 10:10] LABS: Mucus,Urine Many (Few)
[2018-09-18 10:25] LABS: Clarity,Urine Cloudy (Clear)
[2018-09-18 10:42] LABS: Amphetamine Screen,Urine Positive ng/mL (Cutoff=1000)
[2018-09-18 10:46] LABS: Barbiturate Screen,Urine Negative ng/mL (Cutoff=200); Benzodiazepines Screen,Urine Negative ng/mL (Cutoff=200); Cannabinoid Screen,Urine Negative ng/mL (Cutoff = 50); Cocaine Screen,Urine Negative ng/mL (Cutoff= 300); Opiate Screen,Urine Positive ng/mL (Cutoff=300)
[2018-09-18 10:47] LABS: Phencyclidine Screen,Urine Negative ng/mL (Cutoff=25)
[2018-09-18] MEDS ORDERED: cefTRIAXone 1,000 MG in Water for inj. (sterile) 20 ML 10 ML IVP ONE (13:30)
[2018-09-18] MEDS: 0.9 % Sodium Chloride 1,000 ML IVC SCH ×2 (13:51→19:42)
[2018-09-18] MEDS: *HR* OxyCODONE/APAP 5/325 TABLET PO PRN ×3 (14:36→22:53)
--- NOTE | 2018-09-18 17:32 | Internal Med History&Physical ---
Date of Encounter: 09/18/18 Time of Encounter: 15:40 Assessment and Plan (1) Acute renal insufficiency Current visit: Yes Status: Acute IV fluids have been ordered. Anti-emetics will be given as needed. (2) Anemia Current visit: No Status: Chronic Anemia testing will be done in a.m. Qualifiers: Anemia type: other cause Other causes of anemia: chronic disease, other Qualified Code(s): D63.8 - Anemia in other chronic diseases classified elsewhere (3) Hypokalemia Current visit: Yes Status: Acute Probably secondary to diuretic use with vomiting. Supplement potassium will be given an labs rechecked in a.m. Internal Medicine - H&P: HPI Chief complaint: Flank pain and vomiting Admitted From: Emergency Dept Plans for Post Hospital Care: Home History of present illness: Mr. Haines is a 43 year old male who came to emergency room stating he had right flank pain and numerous episodes of nonbloody vomiting and diarrhea onset the evening of September 15. He denies fevers or diarrhea. He came to emergency room and was found to have acute renal failure and hypokalemia. He was admitted to [facility] floor for ongoing care needs. He had been seen in [facility] emergency room 09/10/2018 with similar complaints. He w as given anti-emetics at discharge. He was hospitalized October 2017 and July 2018 with similar complaints. 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 A distal right ureter stent was placed at time of surgery. Because of symptomatic reflux a right nephrostomy tube was placed and remained until a reimplantation of right ureter surgery January 2017. There has been no significant change in reflux symptoms. He denies other kidney or bladder disorders. He states he took 2 oxycodone he "had at home" in the past 2 days for pain relief. Past Med Surg Social Fam HX - Past Medical History Medical history: arthritis, hypertension, kidney stones, renal disease, other Additional medical history: kidney failure Psychiatric history: anxiety, panic disorder - Past Surgical History Surgical History: orthopedic, other, ureteral stent, other Additional surgical history: ureter bypass, Kidney stones removed, nephrostomy right kidney x1 year, right shoulder and elbow - Social History Smoking Status: Never smoker Smokeless Tobacco Status: No Alcohol use: none Drug use: none - Family History Sister Family Member Ethnicity: Non- Living Status: Still Living Father Family Member Ethnicity: Non- Living Status: Still Living Hx Family Cardiac Disorders: Yes (high blood pressure, heart disease) Hx Family Cancer: Yes Hx Family Endocrine Disorder: Yes (Diabetes) Mother Adopted: No Family Member Ethnicity: Non- Living Status: Still Living Hx Family Cardiac Disorders: Yes (high blood pressure, heart disease) Hx Family Cancer: Yes (moms brothers had pancreatic cancer) Hx Family Endocrine Disorder: Yes Internal Medicine - H&P: Meds Tamsulosin [Flomax] 0.4 mg PO DAILY 08/26/16 [History] Ondansetron [Zofran ODT] 8 mg SL Q8H PRN #6 tab 11/01/17 [Rx] Labetalol HCl 300 mg PO BID 09/10/18 [History] Losartan/Hydrochlorothiazide [Losartan-Hctz 100-25 mg Tab] 1 each PO DAILY 09/10/18 [History] Promethazine [Phenergan] 25 mg PO Q8HR PRN #15 tablet 09/10/18 [Rx] amLODIPine [Norvasc] 2.5 mg PO DAILY 09/10/18 [History] Oxybutynin [Ditropan] 5 mg PO TID 09/18/18 [History] Allergy/AdvReac Type Severity Reaction Status Date / Time ketorolac [From Toradol] Allergy Rash Verified 09/18/18 08:02 All Systems PM: A 10-system review of systems was performed and is negative for pertinent findings except as documented above in the HPI. Review of systems: Review of systems from his July 2018 [facility] hospitalization were reviewed and revised as below. General: His weight has been stable at approximately 88 kg since October 2017 hospitalization. Cardiovascular: He has hypertension but no known FL heart failure angina DVT or pulmonary embolus. He reports blood pressures have been overall well controlled and uses antihypertensive medications sporadically based on blood pressure readings at home. He claims he had exercise stress test at [facility] in August 2015 which did not show ischemia. Respiratory: He is a lifelong nonsmoker and has no known chronic lung disease GI: He denies disorders of his liver gallbladder or exocrine pancreas. : As per history of present illness Neurologic: He denies large distribution strokes or seizures Endocrine: He denies diabetes thyroid disease or hyperlipidemia Hematology/oncology: He had anemia with iron deficiency documented during his October 2017 hospitalization. He was discharged on ferrous sulfate with ascorbic acid but these have not been continued. He denies internal malignancies Psychiatric: He has anxiety and depression but denies other mental health issues Musk skeletal: He has DJD but denies gout or other bone joint or muscle disorders. - Constitutional Vitals: Temp Pulse Resp BP Pulse Ox 98.4 F 84 18 110/50 96 09/18/18 13:47 09/18/18 13:47 09/18/18 13:47 09/18/18 14:10 09/18/18 13:47 Exam: Gen.: He is a well-developed well-nourished male resting comfortably in bed who appears in no acute distress HEENT: Head is atraumatic and normocephalic. Eyes: EOMI. There is no scleral icterus. Mouth: Mucosa is moist. Neck: Supple and nontender. There is no thyromegaly or adenopathy noted. Heart: Regular without murmurs gallops or ectopics Lungs: No wheezes or crackles are heard. Abdomen: Soft and nontender. No masses or guarding are noted. Extremities: There is no cyanosis edema or clubbing noted. Dorsalis pedis and posterior tibial pulses are 1-2 over 2 bilaterally. Neurologic: Mental status: He is talkative and a good historian. Cranial nerves: Smile is symmetric. Forehead wrinkles bilaterally. Tongue protrudes midline. EOMI. Motor: There is no pronator drift. Cerebellar: Finger to nose is intact bilaterally. Skin: Warm and dry Internal Med - H&P Results - Labs CBC & Chem 7: 09/18/18 08:34 09/18/18 08:34 Labs: Short CBC 09/18/18 Range/Units 08:34 WBC 10.2 (4.3-11.1) K/mcL Hgb 11.9 L (12.9-16.9) g/dL Hct 37.2 L (37.5-50.1) % Plt Count 362 (140-400) K/mcL Neutrophils # 7.2 (1.6-8.9) K/mcL BMP 09/18/18 08:34 Sodium 143 Potassium 3.1 L Chloride 111 H Carbon Dioxide 25 BUN 24 H Creatinine 2.47 H Glucose 103 Calcium 9.4 Urine 04/23/19 Range/Units 09:53 Urine Color Yellow (Yellow) Urine Clarity Cloudy A (Clear) Urine pH 5.0 (5.0-8.0) pH Units Ur Specific [place] >= 1.030 H (1.010-1.025) Urine Protein 100 H (Neg-Trace) mg/dL Urine Glucose (UA) Normal (Normal) mg/dL - Impressions ITS Impressions Abdomen/Pelvis CT 09/18/18 09:14 IMPRESSION: 1. No acute intra-abnormality. 2. No acute intrapelvic abnormality. 3. No urinary tract calcifications seen. D/ / Ernst Marrero MD / Ernst Marrero MD Interpreting Provider: Ernst Marrero MD
[2018-09-18] MEDS: Ondansetron 4 MG/2 ML VIAL IVP PRN (18:44)
[2018-09-18] MEDS: 0.45 % Sodium Chloride w/KCl 20 MEQ/1,000 ML MLS IVC SCH (18:45)
[2018-09-19] MEDS: 0.45 % Sodium Chloride w/KCl 20 MEQ/1,000 ML MLS IVC SCH (02:34)
[2018-09-19] MEDS: *HR* OxyCODONE/APAP 5/325 TABLET PO PRN ×2 (03:01→08:10)
[2018-09-19 06:26] LABS: Basophils # 0.1 K/mcL (0.0-0.2); Basophils % 0.9 %; Eosinophils # 0.3 K/mcL (0.0-0.6); Eosinophils % 3.6 %; Hematocrit 36.5 % (37.5-50.1); Hemoglobin 11.9 g/dL (12.9-16.9); Immature Granulocytes % 0.3 % (0-4); Lymphocytes # 2.6 K/mcL (0.6-4.6); Lymphocytes % 33.7 %; Mean Corpuscular HGB Conc 32.6 g/dL (31.6-35.5); Mean Corpuscular Volume 98.1 fL (83.0-100.0); Monocytes # 0.7 K/mcL (0.0-1.3); Monocytes % 9.2 %; Neutrophils # 4.1 K/mcL (1.6-8.9); Platelet Count 322 K/mcL (140-400); Red Blood Count 3.72 M/mcL (4.19-5.50); Red Cell Distribution Width 14.7 % (11.5-14.5); Segmented Neutrophils % 52.3 %
[2018-09-19 06:48] LABS: Magnesium 1.7 mg/dL (1.6-2.6)
[2018-09-19 06:49] LABS: BUN/Creatinine Ratio 13 (6-26); Blood Urea Nitrogen 12 mg/dL (6-20); Calcium 9.1 mg/dL (8.6-10.3); Carbon Dioxide 28 mEq/L (23-29); Chloride 102 mEq/L (98-107); Glucose 92 mg/dL (70-105); Osmolality,Calculated 285 (280-300); Phosphorous 3.5 mg/dL (2.7-4.5); Potassium 3.5 mEq/L (3.5-5.1); Sodium 138 mEq/L (136-145); eGFR For Non-African Americans > 60 (> 60)
[2018-09-19 06:50] VITALS: BP 113/67
[2018-09-19] MEDS ORDERED: amLODIPine 5 MG TABLET PO SCH (09:00)
[2018-09-19] MEDS ORDERED: Losartan/HCTZ 50-12.5 TABLET PO SCH (09:00)
[2018-09-19 09:10] LABS: Folate 10.6 ng/mL (3.0-16.0)
[2018-09-19] MEDS: Ondansetron 4 MG/2 ML VIAL IVP PRN (09:44)
--- NOTE | 2018-09-19 09:50 | Discharge Summary ---
Date of Encounter: 09/19/18 Time of Encounter: 09:42 - Discharge Diagnosis (1) Acute renal insufficiency Priority: Primary Status: Resolved (2) Anemia Priority: Secondary Status: Chronic Qualifiers: Anemia type: other cause Other causes of anemia: chronic disease, other Qualified Code(s): D63.8 - Anemia in other chronic diseases classified elsewhere (3) Hypokalemia Priority: Secondary Status: Resolved Hospital course: Mr. Haines is a 43 year old male who came to emergency room stating he had right flank pain and numerous episodes of nonbloody vomiting and diarrhea onset the evening of September 15. He denies fevers or diarrhea. He came to emergency room and was found to have acute renal failure and hypokalemia. He was admitted to [facility] floor for ongoing care needs. Initial orders were written by the emergency room physician. I saw him on September 18 and performed a history and physical. He was given IV fluids. Antiemetics were given as needed. Azotemia resolved with BUN and creatinine decreasing to 12 and 0.94 respectively by the following day with estimated GFR> 60. Anemia testing showed iron 38, transferrin saturation 11%, transferrin 240, ferritin 58, B12 311, and folate 10.6. He will be given ferrous sulfate with ascorbic acid at discharge. His PCP can monitor labs. Supplement potassium was given and hypokalemia normalized to 3.5 by day of discharge. There were no new problems and on September 19 he felt stable for discharge home. He will follow with his PCP Fernando Del Valle CNP within 1 week. - Time Spent with Patient Total time spent providing and/or coordinating discharge services: - Discharge Medications Prescriptions: New Ascorbic Acid [C-500] 500 mg PO DAILY #30 tablet Ferrous Sulfate 325 mg PO DAILY #30 tablet Continue Tamsulosin [Flomax] 0.4 mg PO DAILY Ondansetron [Zofran ODT] 8 mg SL Q8H PRN #6 tab PRN Reason: Nausea Labetalol HCl 300 mg PO BID amLODIPine [Norvasc] 2.5 mg PO DAILY Promethazine [Phenergan] 25 mg PO Q8HR PRN #15 tablet PRN Reason: Nausea Oxybutynin [Ditropan] 5 mg PO TID Discontinued Losartan/Hydrochlorothiazide [Losartan-Hctz 100-25 mg Tab] 1 each PO DAILY Home Medications: Tamsulosin [Flomax] 0.4 mg PO DAILY 08/26/16 [History] Ondansetron [Zofran ODT] 8 mg SL Q8H PRN #6 tab 11/01/17 [Rx] Labetalol HCl 300 mg PO BID 09/10/18 [History] Promethazine [Phenergan] 25 mg PO Q8HR PRN #15 tablet 09/10/18 [Rx] amLODIPine [Norvasc] 2.5 mg PO DAILY 09/10/18 [History] Oxybutynin [Ditropan] 5 mg PO TID 09/18/18 [History] Ascorbic Acid [C-500] 500 mg PO DAILY #30 tablet 09/19/18 [Rx] Ferrous Sulfate 325 mg PO DAILY #30 tablet 09/19/18 [Rx] Allergies/Adverse Reactions: Allergy/AdvReac Type Severity Reaction Status Date / Time ketorolac [From Toradol] Allergy Rash Verified 09/18/18 08:02 Date of admission: 09/18/18 13:09 Primary care physician: Fernando Del Valle CNP - Constitutional Vitals: Temp Pulse Resp BP Pulse Ox 98.0 F 75 16 113/67 97 09/19/18 06:49 09/19/18 06:49 09/19/18 06:49 09/19/18 06:49 09/19/18 08:13 - Patient Status Disposition: Home, Self-Care Condition: Fair - Discharge Instructions Follow Up With: Fernando Del Valle CNP [Primary Care Provider] - 1 week - Diet and Activity Activity: resume usual activities as tolerated Diet: advance to your usual diet
== END 2018-09-19 10:25 | disposition home or self-care (01) ==
LOC: INPPIK 08:01 → EMEROOPIK 08:01 → INPPIK 13:15
PROVIDERS: ADMIT Internal Medicine; ATTEND Internal Medicine